=== PATIENT | male | born 1970 | race Caucasian/White ===

== ENCOUNTER → 2016-05-13 | Outpatient (CLI) | payer OTHER ==
--- NOTE | 2016-05-13 08:58 | KCIC ---
Surekha for foreign body Indication: Pre MRI screening. Time of exam 8:03 a.m. No radiopaque orbital foreign body is detected. Electronically signed by: Suhas Edmonds MD (May 13, 2016 08:56:05)
--- NOTE | 2016-05-13 09:48 | KCIC ---
PROCEDURE MR of the right knee HISTORY Right knee pain medially. Swelling for 1 week. COMPARISON None TECHNIQUE Standard noncontrast images are obtained. FINDINGS Signal identified within the medial meniscus with meniscal distortion, findings are compatible with a degenerative tear. No evidence of a lateral meniscal tear. The anterior and the posterior cruciate ligaments are intact. Mild scarring of the proximal medial collateral ligament without acute injury. Iliotibial band unremarkable. Fibular collateral ligament, biceps femoris tendon and popliteus tendon are intact. Note there is some signal and ill definition of the popliteus tendon at its attachment compatible with degeneration but no acute tear. Moderate joint effusion. No evidence of osteochondral loose body. Moderate chondromalacia of the medial patella. Vertical full-thickness cartilage fissure at the central femoral trochlear groove. Moderate to severe medial compartment chondromalacia. Subchondral cystic degeneration at the femoral trochlea. Bones otherwise intact. Soft tissue edema around the knee. IMPRESSION 1. Medial meniscal tear. 2. Primary osteoarthritis. Electronically signed by: Urbano Fowler MD (May 13, 2016 09:46:51)
== END | disposition home or self-care (01) ==
LOC: KCIC MRI 07:43
PROVIDERS: ATTEND Orthopaedic Surgery
DX: M25.561 Pain in right knee (principal)
CPT/HCPCS: 70030; 73721

== ENCOUNTER → 2018-12-13 | Day surgery (SDC) | payer OTHER ==
[~2018-12-13] MED LIST: ALBU2.5V8 IH; FLUT9.9S NS; IPRA3AMP29 NEB; IV RINGERS,LACTATED 1000ML 1,000 ML IV ONE; LIDOCAINE 2% PF 5 ML VIAL. ONE; LORA1TAB47 PO; OLOP5DRO EACHEYE; PRED-220 PO; PROPOFOL 40 ML IV ONE
--- NOTE | 2018-12-13 13:31 | PDOC4 ---
PROCEDURE Procedure Colonoscopy/biopsies Indication: CRC screening, no prior Meds: per anesthesia Findings: GAY: normal --'Scope advanced to cecum. Mucosa normal. No diverticulosis seen. --2, 3-4mm polyps in mid-ascending and mid-transverse, both biopsied off. Small internal hemorrhoids on retroflex. Ricki. well. IMP: Small polyps IH's REC: Await path. Resume home meds and diet. F/u in 2 weeks. Repeat exam pending path. SKY MINOR MD Dec 13, 2018 13:31
[2018-12-13 13:45] VITALS: BP 128/66
--- NOTE | 2018-12-15 15:07 | PATHOLOGY ---
[facility] Accession Number: [id number] . 01 Material submitted: . PART A: colon - BX ASCENDING COLON POLYP. Modifiers: ascending PART B: colon - BX TRANSVERSE COLON POLYP. Modifiers: transverse . 01 Clinical history: . Screening colonoscopy . 02 Diagnosis: A. Colon biopsy, ascending colon polyp: - Tubular adenoma. . B. Colon biopsy, transverse colon polyp: - Tubular adenoma. (JPM:kathy; 12/15/2018) QMS 12/15/2018 1153 Local . 02 Comment: There is no high-grade dysplasia or evidence of malignancy. . 02 Electronically signed: . Nilton Vargas MD, Pathologist NPI- [id number] . 01 Gross description: . A. Received in formalin labeled "Zach Arnold, RISHABH ascending colon polyp," is a single segment of oh soft tissue measuring 0.3 cm in maximum dimension. The specimen is entirely submitted in cassette A1. . B. Received in formalin labeled "Zach Arnold, BX transverse colon polyp," is a single segment of oh soft tissue measuring 0.4 cm in maximum dimension. The specimen is entirely submitted in cassette B1. (TSD; 12/14/2018) TOB/TOB 12/14/2018 1751 Local . 02 Pathologist provided ICD-10: D12.2, D12.3 . 02 CPT . 149573, 724325 Specimen Comment: A courtesy copy of this report has been sent to [phone] Specimen Comment: [id number] Specimen Comment: Report sent to / DR MCGHEE Performed at: [address], [place], [place] [id number] MD Francis Wilkerson MD Phone: [phone] Performed at: 02 [facility] [address] [place], [place] [id number] MD Nilton Vargas MD Phone: [phone]
== END ==
LOC: ENDOS 12:32
PROVIDERS: ATTEND Internal Medicine Gastroenterology
DX: Z12.11 Encounter for screening for malignant neoplasm of colon (principal); D12.2 Benign neoplasm of ascending colon; D12.3 Benign neoplasm of transverse colon; K64.0 First degree hemorrhoids; J45.909 Unspecified asthma, uncomplicated; E78.5 Hyperlipidemia, unspecified; E66.9 Obesity, unspecified; Z68.33 Body mass index [BMI] 33.0-33.9, adult; Z98.890 Other specified postprocedural states; Z72.89 Other problems related to lifestyle; Z87.39 Personal history of other diseases of the musculoskeletal system and connective tissue
CPT/HCPCS: 45380; 88305; J2001; J2704

== ENCOUNTER 2019-08-03 13:18 | Inpatient (IN) | payer OTHER ==
[~2019-08-03] VITALS: Ht 177.8 cm; Wt 104.0 kg
[~2019-08-03 13:18] MED LIST changes: -IV RINGERS,LACTATED 1000ML 1,000 ML IV ONE; -LIDOCAINE 2% PF 5 ML VIAL. ONE; -PROPOFOL 40 ML IV ONE
[2019-08-03 13:45] VITALS: BP 128/79
[2019-08-03] MEDS ORDERED: ACETAMINOPHEN 325 MG TABLET. PO PRN (14:00)
[2019-08-03] MEDS ORDERED: ALBUTEROL SULFATE 2.5 MG/3 ML NEBU. NEB PRN (14:15)
--- NOTE | 2019-08-03 14:20 | NUR ---
Patient was admitted from Dr. Zamudio's office around 1345. Patient being tested for COVID therefore needed to be transferred to COVID floor. Called report to BUCK Britton in ICU, patient transferred via wheelchair with all belongings, to room 114.
[2019-08-03 14:25] VITALS: BP 117/85
[2019-08-03] MEDS: ONDANSETRON PF 4 MG/2 ML VIAL. IVP PRN (14:58)
[2019-08-03] MEDS: MORPHINE SULFATE 2 MG/ML VIAL. IV PRN (14:59)
[2019-08-03 15:21] LABS: BASO % 0 % (0-3); EOS % 1 % (0-3); HEMATOCRIT 43.7 % (39.0-53.0); HEMOGLOBIN 15.6 g/dL (13.0-17.5); LYMPH # 0.5 x10^3/uL (1.0-4.8); LYMPH % 8 % (24-48); MEAN CORPUSCULAR HEMOGLOBIN 32 pg (25-35); MEAN CORPUSCULAR HGB CONC 36 g/dL (31-37); MEAN CORPUSCULAR VOLUME 89 fL (79-100); MONO # 0.8 x10^3/uL (0.0-1.1); MONO % 13 % (0-9); NEUT % 78 % (31-73); PLATELET COUNT 228 x10^3/uL (140-400); RED BLOOD COUNT 4.92 x10^6/uL (4.30-5.70); RED CELL DISTRIBUTION WIDTH 13.1 % (11.5-14.5); WHITE BLOOD COUNT 6.4 x10^3/uL (4.0-11.0)
--- NOTE | 2019-08-03 15:31 | PDOC2 ---
GI CONSULT Reason For Consult: vomiting, abd pain HPI: HPI: 49 y/o male directly admitted by Dr. Zamudio. Last week had some lower abdominal cramping prior to stooling - not unusual. Ate a sandwich from [employer] on Thursday. Had watery diarrhea beginning Thursday morning, felt weak and fatigued. This morning at 3:00 a.m. awoke w/ "heartburn" pain in epigastrium and vomited "solid" food. Antacid didn't help. Diarrhea ongoing, no recurrence of vomiting. Had temp checked three times today - not febrile until in ICU. 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 Doesn't have heartburn regularly. No dysphagia. No chronic n/v, abd pain, or diarrhea. No constipation. No hematemesis, hematochezia, or melena. No weight loss. No previous EGD. Colonoscopy in 2019 w/ Dr. Rogers w/ two adenomatous polyps and internal hemorrhoids. S/p open cholecystectomy for acute calculous cholecystitis. No liver, pancreas, or PUD history. No regular use of NSAIDs. PMH: PMH: HLD, allergic rhinitis, asthma, GERD, colon polyps cholecystectomy, LASIK FH: Family History: Cancer (breast, renal, lung) Social History: Smoke: No ALCOHOL: occassional Drugs: None ROS: GEN: fatigue, fever HEENT: Denies blurred vision, sore throat CV: Denies chest pain RESP: "always moreno short of breath because I have asthma" GI: Per HPI : Denies hematuria, dysuria ENDO: Denies weight changes NEURO: Denies confusion, dizziness MSK: weakness SKIN: Denies jaundice, pruritus Vitals: Vitals: Vital Signs Date Time Temp Pulse Resp B/P (MAP) Pulse Ox O2 Delivery O2 Flow Rate FiO2 08/03/19 14:59 20 96 Room Air 08/03/19 13:45 98.9 116 128/79 (95) 98.9 Allergies: Coded Allergies: No Known Drug Allergies (Unverified , 12/13/18) Medications: Current Medications Medications (Trade) Dose Ordered Sig/Dale Route PRN Reason Start Time Stop Time Status Last Admin Dose Admin Ondansetron HCl (Zofran) 4 mg PRN Q6HRS PRN IVP NAUSEA/VOMITING 08/03/19 14:00 08/03/19 14:58 Acetaminophen (Tylenol) 650 mg PRN Q6HRS PRN PO MILD PAIN / TEMP > 100.3'F 08/03/19 14:00 08/03/19 14:59 Morphine Sulfate (Morphine Sulfate) 1 mg PRN Q4HRS PRN IV PAIN 08/03/19 14:00 08/03/19 14:59 Imaging: Imaging: CXR pending PE: GEN: NAD HEENT: Atraumatic, PERRL LUNGS: CTAB HEART: RRR ABD: NABS, soft, round, epigastric to LUQ discomfort EXTREMITY: No edema SKIN: No rashes, no jaundice NEURO/PSYCH: A & O 3 A/P: A/P: Diarrhea, vomiting, epigastric pain, fever, fatigue CRC screen, h/o polyps - UTD R/o COVID-19 -- Await pending labs (including stool tests) and imaging as ordered by Dr. Zamudio. Was asked if CT should be done STAT considering unknown COVID status - would await labs. Pending lab and CT results (if done), could consider clears. 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 YADI MASTERS Aug 03, 2019 15:31
[2019-08-03 15:42] LABS: ALBUMIN 3.7 g/dL (3.4-5.0); CALCIUM 8.6 mg/dL (8.5-10.1); CREATININE 1.1 mg/dL (0.7-1.3); GFR 70.6; POTASSIUM 3.9 mmol/L (3.5-5.1); TOTAL BILIRUBIN 0.8 mg/dL (0.2-1.0); TOTAL PROTEIN 7.5 g/dL (6.4-8.2)
[2019-08-03] MEDS ORDERED: LORA-627 PO (15:42)
--- NOTE | 2019-08-03 16:12 | RAD ---
EXAM: CHEST AP ONLY INDICATION: Reason: fatigue, chills / Spl. Instructions: / History: . TECHNIQUE: Single view COMPARISON: None FINDINGS: The heart size is normal. The great vessels appear unremarkable. There is no hilar or mediastinal mass. The lungs are clear. There is no pleural effusion or pneumothorax. There are no significant osseous abnormalities. IMPRESSION: No active cardiopulmonary disease. Electronically signed by: Jose Martin Coon MD (08/03/2019 4:09 PM) [id number]
--- NOTE | 2019-08-03 16:14 | EKG ---
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
[2019-08-03] MEDS: POTASSIUM CL 20MEQ D5-0.45NACL 1,000 ML IV SCH (16:24)
[2019-08-03] MEDS: PANTOPRAZOLE IV PUSH 40 MG VIAL. IVP SCH ×2 (16:32→20:14)
[2019-08-03 19:00] VITALS: BP 115/76
[2019-08-03 23:00] VITALS: BP 118/69
[2019-08-04] VITALS (7 sets, daily range): BP systolic 105–131; BP diastolic 67–81
[2019-08-04] MEDS: POTASSIUM CL 20MEQ D5-0.45NACL 1,000 ML IV SCH ×4 (02:46→22:52)
--- NOTE | 2019-08-04 06:09 | NUR ---
FLUIDS NOT GIVEN AT 0600. PREVIOUS FLUIDS STILL INFUSING
[2019-08-04] MEDS: MORPHINE SULFATE 2 MG/ML VIAL. IV PRN ×3 (06:32→19:28)
--- NOTE | 2019-08-04 10:28 | PDOC ---
Subjective: Subjective: I called to check on him - says not feeling better. Drinking water. Hasn't vomited since Thursday. A little diarrhea at 8:00 a.m. 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 Objective: Vital Signs: Vital Signs Date Time Temp Pulse Resp B/P (MAP) Pulse Ox O2 Delivery O2 Flow Rate FiO2 08/04/19 07:05 97.3 81 16 131/72 (91) 97 Room Air 97.3 Labs: Laboratory Tests Test 08/03/19 14:45 White Blood Count 6.4 x10^3/uL Red Blood Count 4.92 x10^6/uL Hemoglobin 15.6 g/dL Hematocrit 43.7 % Mean Corpuscular Volume 89 fL Mean Corpuscular Hemoglobin 32 pg Mean Corpuscular Hemoglobin Concent 36 g/dL Red Cell Distribution Width 13.1 % Platelet Count 228 x10^3/uL Neutrophils (%) (Auto) 78 % Lymphocytes (%) (Auto) 8 % Monocytes (%) (Auto) 13 % Eosinophils (%) (Auto) 1 % Basophils (%) (Auto) 0 % Neutrophils # (Auto) 5.0 x10^3/uL Lymphocytes # (Auto) 0.5 x10^3/uL Monocytes # (Auto) 0.8 x10^3/uL Eosinophils # (Auto) 0.0 x10^3/uL Basophils # (Auto) 0.0 x10^3/uL Sodium Level 139 mmol/L Potassium Level 3.9 mmol/L Chloride Level 101 mmol/L Carbon Dioxide Level 27 mmol/L Anion Gap 11 Blood Urea Nitrogen 24 mg/dL Creatinine 1.1 mg/dL Estimated GFR (Cockcroft-Gault) 70.6 BUN/Creatinine Ratio 22 Glucose Level 109 mg/dL Calcium Level 8.6 mg/dL Magnesium Level 1.6 mg/dL Total Bilirubin 0.8 mg/dL Aspartate Amino Transf (AST/SGOT) 29 U/L Alanine Aminotransferase (ALT/SGPT) 45 U/L Alkaline Phosphatase 86 U/L Total Protein 7.5 g/dL Albumin 3.7 g/dL Albumin/Globulin Ratio 1.0 Amylase Level 70 U/L Lipase 139 U/L PE: in COVID-isolation room w/ pending testing A/P: Epigastric pain Diarrhea, vomiting - better, enteric bacterial panel uncollected R/o COVID-19 Hypomagnesemia -- Nurse asks for diet clarification - nothing ordered but drinking water - I said okay for clears while we await COVID testing. Hopefully CT soon. Continue PPI. Could try GI cocktail. Also d/w nurse re: his questions about his senior technical support analyst. Justicifation of Admission Dx: Justifications for Admission: Justification of Admission Dx: Yes YADI MASTERS Aug 04, 2019 10:28
[2019-08-04 11:54] LABS: BILIRUBIN,URINE NEGATIVE (NEG); CLARITY,URINE CLEAR; COLOR,URINE YELLOW; NITRITE,URINE NEGATIVE (NEG); PROTEIN,URINE NEGATIVE (NEG-TRACE)
[2019-08-04] MEDS ORDERED: MAGNESIUM SULFATE 2GM 50 ML IV ONE (12:00)
[2019-08-04 12:14] LABS: BACTERIA,URINE FEW /HPF (0-FEW); RBC,URINE 0 /HPF (0-2); SQUAMOUS EPITHELIAL CELL,UR MOD /LPF; WBC,URINE RARE /HPF (0-4)
--- NOTE | 2019-08-04 12:33 | NUR ---
SS following for discharge planning. SS reviewed pt chart and discussed with pt RN. Pt is from home and is currently on room air. Pt COVID19 test pending. SS will continue to follow for discharge planning.
--- NOTE | 2019-08-04 12:50 | HP ---
ADMIT DATE: 08/03/2019 LOCATION: He is in room 674. HISTORY OF PRESENT ILLNESS: The patient is a 49-year-old white male with history of asthma and allergic rhinitis, who was [facility] from my office on 08/03/2019 with vomiting and diarrhea and epigastric and lower abdominal pain. He denied any fever, any chills. He said he had a sandwich from [facility] earlier in the week and he had 10 loose stools on the day of admission and had some vomiting on Thursday. The symptoms began on Thursday, which would have been on 08/01. He was able to drink some fluids, but he had some epigastric pain, which was severe and lower abdominal pain, which also caused a lot of discomfort. Denies any recent travel, has not been on any antibiotics in the last month, not exposed to anybody with similar symptoms that he is aware of. He does have a previous history of a cholecystectomy and his last colonoscopy was in 2018, at which time he had two adenomatous polyps, internal hemorrhoids noted. No previous EGD was done in the past. He is therefore admitted for further evaluation and treatment of the vomiting and diarrhea and abdominal pain. ALLERGIES AND INTOLERANCES: None. MEDICATIONS: Prior to admission include DuoNeb nebulizer treatments q.i.d. p.r.n., ProAir inhaler 1-2 puffs every 4 hours p.r.n., Flonase 2 sprays each nostril everyday p.r.n. PAST MEDICAL HISTORY: Significant for allergic rhinitis and asthma. He had a cholecystectomy, bilateral arthroscopic knee surgery, and hiatal hernia repair in the past. SOCIAL HISTORY: He does not drink alcohol or smoke cigarettes. FAMILY HISTORY: Father had a myocardial infarction. Mother had diabetes mellitus and hypertension. REVIEW OF SYSTEMS: GENERAL: No fever, chills or sweats in the last 3 days. CARDIOVASCULAR: No chest pain. PULMONARY: No cough or shortness of breath. GASTROINTESTINAL: Had epigastric and lower abdominal pain, vomiting and diarrhea. ENDOCRINE: No diabetes mellitus. SKIN: No rashes. Rest of the systems reviewed are negative except as stated in history of present illness. PHYSICAL EXAMINATION: VITAL SIGNS: Temperature is 97.3 degrees, pulse 81, respiratory rate 16, blood pressure 131/72, oxygen saturation 97% on room air. HEENT: Eyes: Gaze is conjugate. Mouth: Tongue is midline. NECK: Shows no cervical lymphadenopathy or thyroid enlargement. HEART: Reveals an S1, S2. There is no S3 or murmur. LUNGS: Clear. ABDOMEN: Soft, bowel sounds positive, it is not distended. He has epigastric tenderness and some diffuse lower abdominal pain without any guarding. Bowel sounds are heard. LABORATORY DATA: Review of his labs, white count 6.4, hemoglobin 15.6, platelet count 228,000, 70 polys and 8 lymphocytes. Sodium 139, potassium 3.9, chloride 101, total CO2 of 27, BUN 24, creatinine 1.1, blood sugar 109, magnesium was low at 1.6. Liver function tests normal. Albumin was 3.7. He had a COVID-19 test, which is pending. Chest x-ray showed no acute abnormality. CAT scan of the abdomen and pelvis has been ordered, but has not been done yet because we are waiting for the COVID-19 results. He had an electrocardiogram done. EKG showed normal sinus rhythm and no acute abnormality. ASSESSMENT: 1. Vomiting and diarrhea, possibly from acute gastroenteritis. 2. Epigastric and lower abdominal pain. 3. Hypomagnesemia. 4. Asthma. 5. History of a cholecystectomy. PLAN: At this time, we have already consulted the GI doctor, who has seen the patient, Dr. Rogers. We will await for the CAT scan of the abdomen and pelvis, which will be done once the COVID-19 results are back and if it is negative. We will get a KUB. Continue IV fluids. He is n.p.o. Continue IV Zofran p.r.n., IV Protonix. We gave him 2 g of magnesium sulfate IV today and repeat the labs tomorrow, including a CBC, CMP and magnesium. IV morphine sulfate has been ordered, 1 mg IV every 4 hours p.r.n. and we will make him actually a full admit. Continue albuterol nebulizer treatments p.r.n. SKY MCGHEE MD DR: JATINDER/osbaldo JOB#: [id number] / [id number]
[2019-08-04] MEDS: LIDO:MAALOX 1:1 20 ML SINGLE DOSE. PO PRN ×2 (14:43→19:28)
--- NOTE | 2019-08-04 15:24 | RAD ---
KUB History: Reason: epigastric abdominal pain / Spl. Instructions: / History: Technique: Supine view the abdomen. Comparison: None. Findings: Mildly dilated loops of small bowel within the upper abdomen. Air and stool scattered throughout the imaged colon. Surgical clips right upper quadrant. Impression: 1. Mildly dilated air-filled loops of small bowel within the upper abdomen, may represent ileus or enteritis. Recommend follow-up to exclude developing obstruction. Electronically signed by: Jose C Alvarado DO (08/04/2019 3:21 PM) REMBERTO
--- NOTE | 2019-08-04 17:29 | RAD ---
CT scan of the abdomen and pelvis without contrast 08/04/2019 CLINICAL HISTORY: Abdominal pain. TECHNIQUE: Unenhanced, contiguous, 5 mm axial sections were obtained through the abdomen and pelvis. One or more of the following individualized dose reduction techniques were utilized for this study: 1. Automated exposure control. 2. Adjustment of the mA and/or kV according to patient size. 3. Use of iterative reconstruction technique. FINDINGS: Images through the lung bases demonstrate minimal dependent subsegmental atelectasis bilaterally. The liver, spleen, pancreas, adrenal glands and kidneys are within normal limits. The abdominal aorta tapers normally. Atherosclerotic calcification of the abdominal aorta is seen. The abdominal aorta tapers normally. Surgical clips are seen within the gallbladder fossa consistent with a cholecystectomy. Dilated air and fluid-filled small bowel loops are seen throughout the abdomen. A transition point in the caliber of the bowel is seen in the mid/distal ileum within the right lower quadrant of the abdomen. These findings are consistent with a small bowel obstruction. Colon is normal in caliber. Images through the pelvis demonstrate the urinary bladder to be contracted. Calcifications are seen within the pelvis consistent with phleboliths. A small amount of free fluid is seen. Minimal S-shaped curvature of the thoracolumbar spine is noted. There is a small fat-containing left inguinal hernia. Degenerative changes are seen involving the thoracic and throughout the lumbar spine along with both hips. IMPRESSION: Findings are seen consistent with a small bowel obstruction. Electronically signed by: Dion Núñez MD (08/04/2019 5:26 PM) [id number]
--- NOTE | 2019-08-04 18:49 | RAD ---
VENOUS LOWER EXTREMITY RIGHT History: Reason: RT leg swelling; r/o DVT;/fever / Spl. Instructions: / History: Comparison: None. Discussion: Multiple longitudinal and transverse high resolution real-time images of the venous system of right lower extremity were obtained with color and Doppler sampling. The common femoral, superficial femoral, popliteal and proximal calf veins are all patent and demonstrate normal flow and compressibility. Normal respiratory phasicity and augmentation is present. Impression: 1. No evidence of deep vein thrombosis. Electronically signed by: Jose C Alvarado DO (08/04/2019 6:46 PM) [facility]
[2019-08-05 03:00] VITALS: BP 107/70
[2019-08-05 04:33] LABS: BASO % 0 % (0-3); EOS # 0.1 x10^3/uL (0.0-0.7); EOS % 2 % (0-3); HEMATOCRIT 43.1 % (39.0-53.0); HEMOGLOBIN 15.1 g/dL (13.0-17.5); LYMPH # 1.5 x10^3/uL (1.0-4.8); LYMPH % 24 % (24-48); MEAN CORPUSCULAR HEMOGLOBIN 31 pg (25-35); MEAN CORPUSCULAR HGB CONC 35 g/dL (31-37); MEAN CORPUSCULAR VOLUME 89 fL (79-100); MONO # 0.8 x10^3/uL (0.0-1.1); MONO % 13 % (0-9); NEUT # 3.7 x10^3/uL (1.8-7.7); NEUT % 60 % (31-73); PLATELET COUNT 231 x10^3/uL (140-400); RED BLOOD COUNT 4.83 x10^6/uL (4.30-5.70); RED CELL DISTRIBUTION WIDTH 13.3 % (11.5-14.5); WHITE BLOOD COUNT 6.1 x10^3/uL (4.0-11.0)
[2019-08-05 05:01] LABS: ALBUMIN 3.1 g/dL (3.4-5.0); ALBUMIN/GLOBULIN RATIO 0.8 (1.0-1.7); CALCIUM 8.2 mg/dL (8.5-10.1); CREATININE 1.1 mg/dL (0.7-1.3); GFR 70.6; POTASSIUM 4.2 mmol/L (3.5-5.1); TOTAL BILIRUBIN 0.5 mg/dL (0.2-1.0); TOTAL PROTEIN 7.1 g/dL (6.4-8.2)
[2019-08-05 07:00] VITALS: BP 104/67
[2019-08-05] MEDS: POTASSIUM CL 20MEQ D5-0.45NACL 1,000 ML IV SCH ×3 (07:14→21:07)
[2019-08-05] MEDS: ONDANSETRON PF 4 MG/2 ML VIAL. IVP PRN (07:14)
[2019-08-05] MEDS: PANTOPRAZOLE IV PUSH 40 MG VIAL. IVP SCH (08:32)
--- NOTE | 2019-08-05 09:06 | NUR ---
SW following. Discussed with RN. Pt from home, room air, clear liquid diet, still having diarrhea and pain. COVID-19 negative. RN advised no SW needs at this time. SW will continue to follow.
--- NOTE | 2019-08-05 10:53 | PDOC ---
PROGRESS NOTES Subjective Subjective ct scan of abdomen and pelvis shows a small bowel obstruction with transition point mid/distal ileum in RLQ. had loose stool. has diffuse abdominal pain. venous doppler RLQ neg for dvt. lab reviewed. no vomiting. Objective Objective Vital Signs Date Time Temp Pulse Resp B/P (MAP) Pulse Ox O2 Delivery O2 Flow Rate FiO2 08/05/19 08:00 Room Air 08/05/19 07:00 98.1 65 18 104/67 (79) 96 98.1 Intake and Output 08/05/19 07:00 # Voids 2 Physical Exam Abdomen: Soft, Other (tender throughout. no guarding. bowel sounds noted. abdomen obese and distended) Heart: Regular rate, Normal S1, Normal S2 Extremities: No edema General: Alert HEENT: Atraumatic Lungs: Clear to auscultation Neuro: Normal speech Psych/Mental Status: Mental status NL Skin: No rashes Assessment Assessment 1. small bowel obstruction . Hypomagnesemia. treated Asthma. History of a cholecystectomy. Plan Plan of Care npo place ng to suction iv fluids consult surgeon discussed with [employer] surgeon acute abdominal series tomorrow Comment Review of Relevant I have reviewed the following items dimitri (where applicable) has been applied. Labs Laboratory Tests Test 08/03/19 14:45 08/03/19 15:08 08/04/19 10:50 08/05/19 04:15 White Blood Count 6.4 x10^3/uL (4.0-11.0) 6.1 x10^3/uL (4.0-11.0) Red Blood Count 4.92 x10^6/uL (4.30-5.70) 4.83 x10^6/uL (4.30-5.70) Hemoglobin 15.6 g/dL (13.0-17.5) 15.1 g/dL (13.0-17.5) Hematocrit 43.7 % (39.0-53.0) 43.1 % (39.0-53.0) Mean Corpuscular Volume 89 fL (79-100) 89 fL (79-100) Mean Corpuscular Hemoglobin 32 pg (25-35) 31 pg (25-35) Mean Corpuscular Hemoglobin Concent 36 g/dL (31-37) 35 g/dL (31-37) Red Cell Distribution Width 13.1 % (11.5-14.5) 13.3 % (11.5-14.5) Platelet Count 228 x10^3/uL (140-400) 231 x10^3/uL (140-400) Neutrophils (%) (Auto) 78 % (31-73) 60 % (31-73) Lymphocytes (%) (Auto) 8 % (24-48) 24 % (24-48) Monocytes (%) (Auto) 13 % (0-9) 13 % (0-9) Eosinophils (%) (Auto) 1 % (0-3) 2 % (0-3) Basophils (%) (Auto) 0 % (0-3) 0 % (0-3) Neutrophils # (Auto) 5.0 x10^3/uL (1.8-7.7) 3.7 x10^3/uL (1.8-7.7) Lymphocytes # (Auto) 0.5 x10^3/uL (1.0-4.8) 1.5 x10^3/uL (1.0-4.8) Monocytes # (Auto) 0.8 x10^3/uL (0.0-1.1) 0.8 x10^3/uL (0.0-1.1) Eosinophils # (Auto) 0.0 x10^3/uL (0.0-0.7) 0.1 x10^3/uL (0.0-0.7) Basophils # (Auto) 0.0 x10^3/uL (0.0-0.2) 0.0 x10^3/uL (0.0-0.2) Sodium Level 139 mmol/L (136-145) 137 mmol/L (136-145) Potassium Level 3.9 mmol/L (3.5-5.1) 4.2 mmol/L (3.5-5.1) Chloride Level 101 mmol/L (98-107) 102 mmol/L (98-107) Carbon Dioxide Level 27 mmol/L (21-32) 27 mmol/L (21-32) Anion Gap 11 (6-14) 8 (6-14) Blood Urea Nitrogen 24 mg/dL (8-26) 12 mg/dL (8-26) Creatinine 1.1 mg/dL (0.7-1.3) 1.1 mg/dL (0.7-1.3) Estimated GFR (Cockcroft-Gault) 70.6 70.6 BUN/Creatinine Ratio 22 (6-20) 11 (6-20) Glucose Level 109 mg/dL (70-99) 110 mg/dL (70-99) Calcium Level 8.6 mg/dL (8.5-10.1) 8.2 mg/dL (8.5-10.1) Magnesium Level 1.6 mg/dL (1.8-2.4) 2.1 mg/dL (1.8-2.4) Total Bilirubin 0.8 mg/dL (0.2-1.0) 0.5 mg/dL (0.2-1.0) Aspartate Amino Transf (AST/SGOT) 29 U/L (15-37) 37 U/L (15-37) Alanine Aminotransferase (ALT/SGPT) 45 U/L (16-63) 62 U/L (16-63) Alkaline Phosphatase 86 U/L (46-116) 90 U/L (46-116) Total Protein 7.5 g/dL (6.4-8.2) 7.1 g/dL (6.4-8.2) Albumin 3.7 g/dL (3.4-5.0) 3.1 g/dL (3.4-5.0) Albumin/Globulin Ratio 1.0 (1.0-1.7) 0.8 (1.0-1.7) Amylase Level 70 U/L (25-115) Lipase 139 U/L (73-393) Coronavirus (COVID-19)(PCR) Not detected (NOT DETECT.) Urine Collection Type Unknown Urine Color Yellow Urine Clarity Clear Urine pH 6.0 (<5.0-8.0) Urine Specific [place] 1.025 (1.000-1.030) Urine Protein Negative mg/dL (NEG-TRACE) Urine Glucose (UA) Negative mg/dL (NEG) Urine Ketones (Stick) Negative mg/dL (NEG) Urine Blood Negative (NEG) Urine Nitrite Negative (NEG) Urine Bilirubin Negative (NEG) Urine Urobilinogen Dipstick 1.0 mg/dL (0.2 mg/dL) Urine Leukocyte Esterase Negative (NEG) Urine RBC 0 /HPF (0-2) Urine WBC Rare /HPF (0-4) Urine Squamous Epithelial Cells Mod /LPF Urine Bacteria Few /HPF (0-FEW) Urine Mucus Mod /LPF Laboratory Tests Test 08/05/19 04:15 White Blood Count 6.1 x10^3/uL (4.0-11.0) Red Blood Count 4.83 x10^6/uL (4.30-5.70) Hemoglobin 15.1 g/dL (13.0-17.5) Hematocrit 43.1 % (39.0-53.0) Mean Corpuscular Volume 89 fL (79-100) Mean Corpuscular Hemoglobin 31 pg (25-35) Mean Corpuscular Hemoglobin Concent 35 g/dL (31-37) Red Cell Distribution Width 13.3 % (11.5-14.5) Platelet Count 231 x10^3/uL (140-400) Neutrophils (%) (Auto) 60 % (31-73) Lymphocytes (%) (Auto) 24 % (24-48) Monocytes (%) (Auto) 13 % (0-9) Eosinophils (%) (Auto) 2 % (0-3) Basophils (%) (Auto) 0 % (0-3) Neutrophils # (Auto) 3.7 x10^3/uL (1.8-7.7) Lymphocytes # (Auto) 1.5 x10^3/uL (1.0-4.8) Monocytes # (Auto) 0.8 x10^3/uL (0.0-1.1) Eosinophils # (Auto) 0.1 x10^3/uL (0.0-0.7) Basophils # (Auto) 0.0 x10^3/uL (0.0-0.2) Sodium Level 137 mmol/L (136-145) Potassium Level 4.2 mmol/L (3.5-5.1) Chloride Level 102 mmol/L (98-107) Carbon Dioxide Level 27 mmol/L (21-32) Anion Gap 8 (6-14) Blood Urea Nitrogen 12 mg/dL (8-26) Creatinine 1.1 mg/dL (0.7-1.3) Estimated GFR (Cockcroft-Gault) 70.6 BUN/Creatinine Ratio 11 (6-20) Glucose Level 110 mg/dL (70-99) Calcium Level 8.2 mg/dL (8.5-10.1) Magnesium Level 2.1 mg/dL (1.8-2.4) Total Bilirubin 0.5 mg/dL (0.2-1.0) Aspartate Amino Transf (AST/SGOT) 37 U/L (15-37) Alanine Aminotransferase (ALT/SGPT) 62 U/L (16-63) Alkaline Phosphatase 90 U/L (46-116) Total Protein 7.1 g/dL (6.4-8.2) Albumin 3.1 g/dL (3.4-5.0) Albumin/Globulin Ratio 0.8 (1.0-1.7) Medications Current Medications Potassium Chloride/Dextrose/ Sod Cl 1,000 ml @ 125 mls/hr Q8H IV Last admini stered on 08/05/19 07:14; Start 08/03/19 at 14:00 Ondansetron HCl (Zofran) 4 mg PRN Q6HRS PRN IVP NAUSEA/VOMITING Last adminis tered on 08/05/19at 07:14; Start 08/03/19 at 14:00 Acetaminophen (Tylenol) 650 mg PRN Q6HRS PRN PO MILD PAIN / TEMP > 100.3'F Last administered on 08/03/19 14:59; Start 08/03/19 at 14:00 Morphine Sulfate (Morphine Sulfate) 1 mg PRN Q4HRS PRN IV PAIN Last administered on 08/04/19 19:28; Start 08/03/19 at 14:00 Albuterol Sulfate (Ventolin Neb Soln) 2.5 mg PRN Q4HRS PRN NEB SHORTNESS OF BREATH; Start 08/03/19 at 14:15 Pantoprazole Sodium (PROTONIX VIAL for IV PUSH) 40 mg DAILYAC IVP Last administered on 08/05/19 08:32; Start 08/03/19 at 16:30 Multi-Ingredient Mouthwash/Gargle (Gi Cocktail) 20 ml PRN QID PRN PO epigastric pain Last administered on 08/04/19 19:28; Start 08/04/19 at 10:30 Magnesium Sulfate 50 ml @ 25 mls/hr 1X ONCE IV Last administered on 08/04/19at 14:44; Start 08/04/19 at 12:00; Stop 08/04/19 at 13:59; Status DC Active Scripts Active Reported Claritin-D 24 Hour Tablet (Loratadine/Pseudoephedrine) 1 Each Tab.er.24h 1 Tab PO PRN DAILY PRN 10 Days Proair Hfa (Albuterol Sulfate) 8.5 Gm Hfa.aer.ad 2 Puff IH PRN Q4-6HRS PRN 21 Days Vitals/I & O Vital Sign - Last 24 Hours 08/04/19 08/04/19 08/04/19 08/04/19 11:04 11:10 11:34 15:10 Temp 97.9 97.6 97.9 97.6 Pulse 92 74 Resp 16 16 16 16 B/P (MAP) 126/77 (93) 119/81 (94) Pulse Ox 97 97 O2 Delivery Room Air Room Air Room Air Room Air 08/04/19 08/04/19 08/04/19 08/04/19 16:40 19:00 19:28 19:58 Temp 98.0 97.6 98.0 97.6 Pulse 76 67 Resp 18 20 20 B/P (MAP) 123/80 (94) 122/75 (91) Pulse Ox 96 96 96 96 O2 Delivery Room Air Room Air Room Air Room Air 08/04/19 08/04/19 08/05/19 08/05/19 20:00 23:00 03:00 07:00 Temp 97.7 98.0 98.1 97.7 98.0 98.1 Pulse 74 71 65 Resp 18 B/P (MAP) 105/69 (81) 107/70 (82) 104/67 (79) Pulse Ox 95 95 96 O2 Delivery Room Air Room Air 08/05/19 08:00 O2 Delivery Room Air SKY MCGHEE MD Aug 05, 2019 10:53
[2019-08-05 11:00] VITALS: BP 127/79
--- NOTE | 2019-08-05 11:28 | PDOC ---
Subjective: Subjective: No n/v. +flatus Two stools - both watery, first fairly large amount, second not much. Pain worse w/ movement today - now more in LUQ. Objective: Vital Signs: Vital Signs Date Time Temp Pulse Resp B/P (MAP) Pulse Ox O2 Delivery O2 Flow Rate FiO2 08/05/19 08:00 Room Air 08/05/19 07:00 98.1 65 18 104/67 (79) 96 98.1 Labs: Laboratory Tests Test 08/05/19 04:15 White Blood Count 6.1 x10^3/uL Red Blood Count 4.83 x10^6/uL Hemoglobin 15.1 g/dL Hematocrit 43.1 % Mean Corpuscular Volume 89 fL Mean Corpuscular Hemoglobin 31 pg Mean Corpuscular Hemoglobin Concent 35 g/dL Red Cell Distribution Width 13.3 % Platelet Count 231 x10^3/uL Neutrophils (%) (Auto) 60 % Lymphocytes (%) (Auto) 24 % Monocytes (%) (Auto) 13 % Eosinophils (%) (Auto) 2 % Basophils (%) (Auto) 0 % Neutrophils # (Auto) 3.7 x10^3/uL Lymphocytes # (Auto) 1.5 x10^3/uL Monocytes # (Auto) 0.8 x10^3/uL Eosinophils # (Auto) 0.1 x10^3/uL Basophils # (Auto) 0.0 x10^3/uL Sodium Level 137 mmol/L Potassium Level 4.2 mmol/L Chloride Level 102 mmol/L Carbon Dioxide Level 27 mmol/L Anion Gap 8 Blood Urea Nitrogen 12 mg/dL Creatinine 1.1 mg/dL Estimated GFR (Cockcroft-Gault) 70.6 BUN/Creatinine Ratio 11 Glucose Level 110 mg/dL Calcium Level 8.2 mg/dL Magnesium Level 2.1 mg/dL Total Bilirubin 0.5 mg/dL Aspartate Amino Transf (AST/SGOT) 37 U/L Alanine Aminotransferase (ALT/SGPT) 62 U/L Alkaline Phosphatase 90 U/L Total Protein 7.1 g/dL Albumin 3.1 g/dL Albumin/Globulin Ratio 0.8 Imaging: [facility] 08/03 Impression: 1. Mildly dilated air-filled loops of small bowel within the upper abdomen, may represent ileus or enteritis. Recommend follow-up to exclude developing obstruction. CT A/P IMPRESSION: Findings are seen consistent with a small bowel obstruction. PE: GEN: NAD LUNGS: CTAB HEART: RRR ABD: round - stable in appearance, tender from epigastric to LUQ, also some in right mid abdomen, few if any BS NEURO/PSYCH: A & O 3 A/P: Abd pain, diarrhea - CT as above w/ SBO COVID-19 negative -- Note plans for NGT and surgery eval. No recurrent vomiting, has stooled. Justicifation of Admission Dx: Justifications for Admission: Justification of Admission Dx: Yes YADI MASTERS Aug 05, 2019 11:28
--- NOTE | 2019-08-05 11:39 | PDOC2 ---
JERARDO ROSEN CAFETERIA AIDE 08/05/19 1139: CONSULT Date of Consult Date of Consult DATE: 08/05/19 TIME: 11:23 Referring Physician Referring Physician: Dr Zamudio Identification/Chief Complaint Chief Complaint abdominal pain Source Source: Chart review, Patient History of Present Illness Reason for Visit: Thursday abdominal pain, nausea, diarrhea. This was progressively worse Thursday. Minimal stool yesterday, however today has had 4 diarrheal stools. No blood. No hx IBD, colonoscopy last year. Some flatus, feels distended. He does report bloating intermittently for last few months. Past Medical History Cardiovascular: Hyperlipidemia Pulmonary: Asthma Past Surgical History Past Surgical History: Cholecystectomy, Hernia Repair Family History Family History: Cancer (breast, renal , lung), Other Social History No ALCOHOL: occassional Drugs: None Current Medications Current Medications Current Medications Potassium Chloride/Dextrose/ Sod Cl 1,000 ml @ 125 mls/hr Q8H IV Last administered on 08/05/19at 07:14; Start 08/03/19 at 14:00 Ondansetron HCl (Zofran) 4 mg PRN Q6HRS PRN IVP NAUSEA/VOMITING Last administered on 08/05/19at 07:14; Start 08/03/19 at 14:00 Acetaminophen (Tylenol) 650 mg PRN Q6HRS PRN PO MILD PAIN / TEMP > 100.3'F Last administered on 08/03/19at 14:59; Start 08/03/19 at 14:00 Morphine Sulfate (Morphine Sulfate) 1 mg PRN Q4HRS PRN IV PAIN Last administered on 08/04/19at 19:28; Start 08/03/19 at 14:00 Albuterol Sulfate (Ventolin Neb Soln) 2.5 mg PRN Q4HRS PRN NEB SHORTNESS OF BREATH; Start 08/03/19 at 14:15 Pantoprazole Sodium (PROTONIX VIAL for IV PUSH) 40 mg DAILYAC IVP Last administered on 08/05/19at 08:32; Start 08/03/19 at 16:30 Multi-Ingredient Mouthwash/Gargle (Gi Cocktail) 20 ml PRN QID PRN PO epigastric pain Last administered on 08/04/19at 19:28; Start 08/04/19 at 10:30 Magnesium Sulfate 50 ml @ 25 mls/hr 1X ONCE IV Last administered on 08/04/19at 14:44; Start 08/04/19 at 12:00; Stop 08/04/19 at 13:59; Status DC Active Scripts Active Reported Claritin-D 24 Hour Tablet (Loratadine/Pseudoephedrine) 1 Each Tab.er.24h 1 Tab PO PRN DAILY PRN 10 Days Proair Hfa (Albuterol Sulfate) 8.5 Gm Hfa.aer.ad 2 Puff IH PRN Q4-6HRS PRN 21 Days Allergies Allergies: Coded Allergies: No Known Drug Allergies (Unverified , 12/13/18) ROS General: YES: Chills, Appetite (loss) PSYCHOLOGICAL ROS: No: Anxiety, Depression Eyes: No Blurry vision, No Double vision HEENT: No: Heacaches, Sore Throat Hematological and Lymphatic: No: Bleeding Problems, Blood Clots Respiratory: No: Cough, Shortness of breath Cardiovascular: No Chest Pain, No Palpitations Gastrointestinal: Yes Other (see hpi) Genitourinary: No Dysuria, No Hematuria Musculoskeletal: No Joint Pain, No Muscle Pain Neurological: No Impaired Coord/balance, No Numbness/Tingling Skin: No Pruritus, No Rash Physical Exam General: Alert, Oriented X3, Cooperative HEENT: Atraumatic, PERRLA Lungs: Clear to auscultation, Normal air movement Heart: Regular rate, Normal S1, Normal S2 Abdomen: Soft, Other (mildly distended, nontender) Extremities: No clubbing, No cyanosis Skin: No rashes, No breakdown Neuro: Normal speech, Sensation intact Psych/Mental Status: Mental status NL, Mood NL MUSCULOSKELETAL: No deformity, No swelling Vitals VITALS Vital Signs Date Time Temp Pulse Resp B/P (MAP) Pulse Ox O2 Delivery O2 Flow Rate FiO2 08/05/19 08:00 Room Air 08/05/19 07:00 98.1 65 18 104/67 (79) 96 98.1 Labs Labs Laboratory Tests Test 08/03/19 14:45 08/03/19 15:08 08/04/19 10:50 08/05/19 04:15 White Blood Count 6.4 x10^3/uL (4.0-11.0) 6.1 x10^3/uL (4.0-11.0) Red Blood Count 4.92 x10^6/uL (4.30-5.70) 4.83 x10^6/uL (4.30-5.70) Hemoglobin 15.6 g/dL (13.0-17.5) 15.1 g/dL (13.0-17.5) Hematocrit 43.7 % (39.0-53.0) 43.1 % (39.0-53.0) Mean Corpuscular Volume 89 fL (79-100) 89 fL (79-100) Mean Corpuscular Hemoglobin 32 pg (25-35) 31 pg (25-35) Mean Corpuscular Hemoglobin Concent 36 g/dL (31-37) 35 g/dL (31-37) Red Cell Distribution Width 13.1 % (11.5-14.5) 13.3 % (11.5-14.5) Platelet Count 228 x10^3/uL (140-400) 231 x10^3/uL (140-400) Neutrophils (%) (Auto) 78 % (31-73) 60 % (31-73) Lymphocytes (%) (Auto) 8 % (24-48) 24 % (24-48) Monocytes (%) (Auto) 13 % (0-9) 13 % (0-9) Eosinophils (%) (Auto) 1 % (0-3) 2 % (0-3) Basophils (%) (Auto) 0 % (0-3) 0 % (0-3) Neutrophils # (Auto) 5.0 x10^3/uL (1.8-7.7) 3.7 x10^3/uL (1.8-7.7) Lymphocytes # (Auto) 0.5 x10^3/uL (1.0-4.8) 1.5 x10^3/uL (1.0-4.8) Monocytes # (Auto) 0.8 x10^3/uL (0.0-1.1) 0.8 x10^3/uL (0.0-1.1) Eosinophils # (Auto) 0.0 x10^3/uL (0.0-0.7) 0.1 x10^3/uL (0.0-0.7) Basophils # (Auto) 0.0 x10^3/uL (0.0-0.2) 0.0 x10^3/uL (0.0-0.2) Sodium Level 139 mmol/L (136-145) 137 mmol/L (136-145) Potassium Level 3.9 mmol/L (3.5-5.1) 4.2 mmol/L (3.5-5.1) Chloride Level 101 mmol/L (98-107) 102 mmol/L (98-107) Carbon Dioxide Level 27 mmol/L (21-32) 27 mmol/L (21-32) Anion Gap 11 (6-14) 8 (6-14) Blood Urea Nitrogen 24 mg/dL (8-26) 12 mg/dL (8-26) Creatinine 1.1 mg/dL (0.7-1.3) 1.1 mg/dL (0.7-1.3) Estimated GFR (Cockcroft-Gault) 70.6 70.6 BUN/Creatinine Ratio 22 (6-20) 11 (6-20) Glucose Level 109 mg/dL (70-99) 110 mg/dL (70-99) Calcium Level 8.6 mg/dL (8.5-10.1) 8.2 mg/dL (8.5-10.1) Magnesium Level 1.6 mg/dL (1.8-2.4) 2.1 mg/dL (1.8-2.4) Total Bilirubin 0.8 mg/dL (0.2-1.0) 0.5 mg/dL (0.2-1.0) Aspartate Amino Transf (AST/SGOT) 29 U/L (15-37) 37 U/L (15-37) Alanine Aminotransferase (ALT/SGPT) 45 U/L (16-63) 62 U/L (16-63) Alkaline Phosphatase 86 U/L (46-116) 90 U/L (46-116) Total Protein 7.5 g/dL (6.4-8.2) 7.1 g/dL (6.4-8.2) Albumin 3.7 g/dL (3.4-5.0) 3.1 g/dL (3.4-5.0) Albumin/Globulin Ratio 1.0 (1.0-1.7) 0.8 (1.0-1.7) Amylase Level 70 U/L (25-115) Lipase 139 U/L (73-393) Coronavirus (COVID-19)(PCR) Not detected (NOT DETECT.) Urine Collection Type Unknown Urine Color Yellow Urine Clarity Clear Urine pH 6.0 (<5.0-8.0) Urine Specific [place] 1.025 (1.000-1.030) Urine Protein Negative mg/dL (NEG-TRACE) Urine Glucose (UA) Negative mg/dL (NEG) Urine Ketones (Stick) Negative mg/dL (NEG) Urine Blood Negative (NEG) Urine Nitrite Negative (NEG) Urine Bilirubin Negative (NEG) Urine Urobilinogen Dipstick 1.0 mg/dL (0.2 mg/dL) Urine Leukocyte Esterase Negative (NEG) Urine RBC 0 /HPF (0-2) Urine WBC Rare /HPF (0-4) Urine Squamous Epithelial Cells Mod /LPF Urine Bacteria Few /HPF (0-FEW) Urine Mucus Mod /LPF Laboratory Tests Test 08/05/19 04:15 White Blood Count 6.1 x10^3/uL (4.0-11.0) Red Blood Count 4.83 x10^6/uL (4.30-5.70) Hemoglobin 15.1 g/dL (13.0-17.5) Hematocrit 43.1 % (39.0-53.0) Mean Corpuscular Volume 89 fL (79-100) Mean Corpuscular Hemoglobin 31 pg (25-35) Mean Corpuscular Hemoglobin Concent 35 g/dL (31-37) Red Cell Distribution Width 13.3 % (11.5-14.5) Platelet Count 231 x10^3/uL (140-400) Neutrophils (%) (Auto) 60 % (31-73) Lymphocytes (%) (Auto) 24 % (24-48) Monocytes (%) (Auto) 13 % (0-9) Eosinophils (%) (Auto) 2 % (0-3) Basophils (%) (Auto) 0 % (0-3) Neutrophils # (Auto) 3.7 x10^3/uL (1.8-7.7) Lymphocytes # (Auto) 1.5 x10^3/uL (1.0-4.8) Monocytes # (Auto) 0.8 x10^3/uL (0.0-1.1) Eosinophils # (Auto) 0.1 x10^3/uL (0.0-0.7) Basophils # (Auto) 0.0 x10^3/uL (0.0-0.2) Sodium Level 137 mmol/L (136-145) Potassium Level 4.2 mmol/L (3.5-5.1) Chloride Level 102 mmol/L (98-107) Carbon Dioxide Level 27 mmol/L (21-32) Anion Gap 8 (6-14) Blood Urea Nitrogen 12 mg/dL (8-26) Creatinine 1.1 mg/dL (0.7-1.3) Estimated GFR (Cockcroft-Gault) 70.6 BUN/Creatinine Ratio 11 (6-20) Glucose Level 110 mg/dL (70-99) Calcium Level 8.2 mg/dL (8.5-10.1) Magnesium Level 2.1 mg/dL (1.8-2.4) Total Bilirubin 0.5 mg/dL (0.2-1.0) Aspartate Amino Transf (AST/SGOT) 37 U/L (15-37) Alanine Aminotransferase (ALT/SGPT) 62 U/L (16-63) Alkaline Phosphatase 90 U/L (46-116) Total Protein 7.1 g/dL (6.4-8.2) Albumin 3.1 g/dL (3.4-5.0) Albumin/Globulin Ratio 0.8 (1.0-1.7) Assessment/Plan Assessment/Plan abdominal pain, diarrhea--seems c/w enteritis will check c diff, abdominal films bowel rest if not improving consider SBFT NORTH DACOSTA MD 08/05/19 1604: CONSULT Assessment/Plan Assessment/Plan pt seen, interviewed and examined plain films reviewed currently no c/o nausea or vomiting RN tried to place NG unsuccessfully times two will hold NG for now and treat expectantly will follow Thanks for consult JERARDO ROSEN APRN Aug 05, 2019 11:39 NORTH DACSOTA MD Aug 05, 2019 16:04
[2019-08-05 15:00] VITALS: BP 134/72
--- NOTE | 2019-08-05 15:19 | RAD ---
ACUTE ABDOMEN SERIES History: Reason: sbo / Spl. Instructions: / History: Technique: Supine and upright views of the abdomen. Comparison: CT August 04, 2019 Findings: No consolidation or pleural effusion. No pneumothorax. No pneumoperitoneum. Moderately dilated air-filled loops of small bowel with air-fluid levels, similar compared to prior CT. Air scattered throughout the imaged colon. Surgical clips right upper quadrant. Impression: 1. Unchanged dilated small bowel loops with air-fluid levels, may represent small bowel obstruction. Electronically signed by: Jose C Alvarado DO (08/05/2019 3:15 PM) [facility]
[2019-08-05 19:40] VITALS: BP 130/72
[2019-08-05 23:21] VITALS: BP 105/50
[2019-08-06 03:36] VITALS: BP 108/66
[2019-08-06] MEDS: POTASSIUM CL 20MEQ D5-0.45NACL 1,000 ML IV SCH ×2 (06:32→17:39)
[2019-08-06] MEDS: PANTOPRAZOLE IV PUSH 40 MG VIAL. IVP SCH (06:33)
[2019-08-06 07:00] VITALS: BP 117/77
--- NOTE | 2019-08-06 07:36 | RAD ---
ACUTE ABDOMEN SERIES History: Small bowel obstruction Comparison: August 05, 2019 Findings: Single view of the chest, 2 supine AP views of the abdomen, and single upright AP view of the abdomen are submitted. There is no new lung infiltrate, pleural fluid, or pneumothorax. Cardiac silhouette is stable. No free air is identified. There are persistent gas dilated loops of small bowel although decreased. There is some gas in the colon. There has been cholecystectomy. Impression: 1. There are persistent gas dilated loops of small bowel although decreased. Electronically signed by: Shmuel Parsons MD (08/06/2019 7:33 AM) [id number]
[2019-08-06 07:37] LABS: BASO % 0 % (0-3); EOS # 0.2 x10^3/uL (0.0-0.7); EOS % 4 % (0-3); HEMATOCRIT 41.4 % (39.0-53.0); HEMOGLOBIN 14.4 g/dL (13.0-17.5); LYMPH # 1.4 x10^3/uL (1.0-4.8); LYMPH % 31 % (24-48); MEAN CORPUSCULAR HEMOGLOBIN 31 pg (25-35); MEAN CORPUSCULAR HGB CONC 35 g/dL (31-37); MEAN CORPUSCULAR VOLUME 89 fL (79-100); MONO # 0.5 x10^3/uL (0.0-1.1); MONO % 11 % (0-9); NEUT # 2.4 x10^3/uL (1.8-7.7); NEUT % 54 % (31-73); PLATELET COUNT 231 x10^3/uL (140-400); PROTHROMBIN TIME PATIENT 13.4 SEC (11.7-14.0); RED BLOOD COUNT 4.64 x10^6/uL (4.30-5.70); RED CELL DISTRIBUTION WIDTH 13.1 % (11.5-14.5); WHITE BLOOD COUNT 4.5 x10^3/uL (4.0-11.0)
[2019-08-06 07:51] LABS: CALCIUM 8.5 mg/dL (8.5-10.1); GFR 78.8; MAGNESIUM 2.2 mg/dL (1.8-2.4); POTASSIUM 4.4 mmol/L (3.5-5.1)
--- NOTE | 2019-08-06 10:37 | PDOC ---
SURGICAL PROGRESS NOTE Subjective pt reports having two stools Dr Zamudio present, examining patient Vital Signs Vital Signs Date Time Temp Pulse Resp B/P (MAP) Pulse Ox O2 Delivery O2 Flow Rate FiO2 08/06/19 07:00 98.1 65 20 117/77 (90) 95 Room Air 98.1 I&O Intake and Output 08/06/19 07:00 Intake Total 0 ml Balance 0 ml Intake Oral 0 ml # Voids 3 # Bowel Movements 2 PATIENT HAS A QUINTEROS: No Abdomen: Soft, Other (tender to deep palpation) Labs Laboratory Tests Test 08/04/19 10:50 08/05/19 04:15 08/05/19 11:00 08/06/19 07:10 Urine Collection Type Unknown Urine Color Yellow Urine Clarity Clear Urine pH 6.0 (<5.0-8.0) Urine Specific [place] 1.025 (1.000-1.030) Urine Protein Negative mg/dL (NEG-TRACE) Urine Glucose (UA) Negative mg/dL (NEG) Urine Ketones (Stick) Negative mg/dL (NEG) Urine Blood Negative (NEG) Urine Nitrite Negative (NEG) Urine Bilirubin Negative (NEG) Urine Urobilinogen Dipstick 1.0 mg/dL (0.2 mg/dL) Urine Leukocyte Esterase Negative (NEG) Urine RBC 0 /HPF (0-2) Urine WBC Rare /HPF (0-4) Urine Squamous Epithelial Cells Mod /LPF Urine Bacteria Few /HPF (0-FEW) Urine Mucus Mod /LPF White Blood Count 6.1 x10^3/uL (4.0-11.0) 4.5 x10^3/uL (4.0-11.0) Red Blood Count 4.83 x10^6/uL (4.30-5.70) 4.64 x10^6/uL (4.30-5.70) Hemoglobin 15.1 g/dL (13.0-17.5) 14.4 g/dL (13.0-17.5) Hematocrit 43.1 % (39.0-53.0) 41.4 % (39.0-53.0) Mean Corpuscular Volume 89 fL (79-100) 89 fL (79-100) Mean Corpuscular Hemoglobin 31 pg (25-35) 31 pg (25-35) Mean Corpuscular Hemoglobin Concent 35 g/dL (31-37) 35 g/dL (31-37) Red Cell Distribution Width 13.3 % (11.5-14.5) 13.1 % (11.5-14.5) Platelet Count 231 x10^3/uL (140-400) 231 x10^3/uL (140-400) Neutrophils (%) (Auto) 60 % (31-73) 54 % (31-73) Lymphocytes (%) (Auto) 24 % (24-48) 31 % (24-48) Monocytes (%) (Auto) 13 % (0-9) 11 % (0-9) Eosinophils (%) (Auto) 2 % (0-3) 4 % (0-3) Basophils (%) (Auto) 0 % (0-3) 0 % (0-3) Neutrophils # (Auto) 3.7 x10^3/uL (1.8-7.7) 2.4 x10^3/uL (1.8-7.7) Lymphocytes # (Auto) 1.5 x10^3/uL (1.0-4.8) 1.4 x10^3/uL (1.0-4.8) Monocytes # (Auto) 0.8 x10^3/uL (0.0-1.1) 0.5 x10^3/uL (0.0-1.1) Eosinophils # (Auto) 0.1 x10^3/uL (0.0-0.7) 0.2 x10^3/uL (0.0-0.7) Basophils # (Auto) 0.0 x10^3/uL (0.0-0.2) 0.0 x10^3/uL (0.0-0.2) Sodium Level 137 mmol/L (136-145) 139 mmol/L (136-145) Potassium Level 4.2 mmol/L (3.5-5.1) 4.4 mmol/L (3.5-5.1) Chloride Level 102 mmol/L (98-107) 105 mmol/L (98-107) Carbon Dioxide Level 27 mmol/L (21-32) 27 mmol/L (21-32) Anion Gap 8 (6-14) 7 (6-14) Blood Urea Nitrogen 12 mg/dL (8-26) 7 mg/dL (8-26) Creatinine 1.1 mg/dL (0.7-1.3) 1.0 mg/dL (0.7-1.3) Estimated GFR (Cockcroft-Gault) 70.6 78.8 BUN/Creatinine Ratio 11 (6-20) Glucose Level 110 mg/dL (70-99) 114 mg/dL (70-99) Calcium Level 8.2 mg/dL (8.5-10.1) 8.5 mg/dL (8.5-10.1) Magnesium Level 2.1 mg/dL (1.8-2.4) 2.2 mg/dL (1.8-2.4) Total Bilirubin 0.5 mg/dL (0.2-1.0) Aspartate Amino Transf (AST/SGOT) 37 U/L (15-37) Alanine Aminotransferase (ALT/SGPT) 62 U/L (16-63) Alkaline Phosphatase 90 U/L (46-116) Total Protein 7.1 g/dL (6.4-8.2) Albumin 3.1 g/dL (3.4-5.0) Albumin/Globulin Ratio 0.8 (1.0-1.7) Stool Campylobacter PCR Negative (NEGATIVE) Stool E. coli Shiga Toxins (PCR) Negative (NEGATIVE) Stool Salmonella PCR Negative (NEGATIVE) Stool Shigella PCR Negative (NEGATIVE) Clostridium difficile Toxin (PCR) Negative (NEGATIVE) Prothrombin Time 13.4 SEC (11.7-14.0) Prothromb Time International Ratio 1.1 (0.8-1.1) Laboratory Tests Test 08/05/19 11:00 08/06/19 07:10 Stool Campylobacter PCR Negative (NEGATIVE) Stool E. coli Shiga Toxins (PCR) Negative (NEGATIVE) Stool Salmonella PCR Negative (NEGATIVE) Stool Shigella PCR Negative (NEGATIVE) Clostridium difficile Toxin (PCR) Negative (NEGATIVE) White Blood Count 4.5 x10^3/uL (4.0-11.0) Red Blood Count 4.64 x10^6/uL (4.30-5.70) Hemoglobin 14.4 g/dL (13.0-17.5) Hematocrit 41.4 % (39.0-53.0) Mean Corpuscular Volume 89 fL (79-100) Mean Corpuscular Hemoglobin 31 pg (25-35) Mean Corpuscular Hemoglobin Concent 35 g/dL (31-37) Red Cell Distribution Width 13.1 % (11.5-14.5) Platelet Count 231 x10^3/uL (140-400) Neutrophils (%) (Auto) 54 % (31-73) Lymphocytes (%) (Auto) 31 % (24-48) Monocytes (%) (Auto) 11 % (0-9) Eosinophils (%) (Auto) 4 % (0-3) Basophils (%) (Auto) 0 % (0-3) Neutrophils # (Auto) 2.4 x10^3/uL (1.8-7.7) Lymphocytes # (Auto) 1.4 x10^3/uL (1.0-4.8) Monocytes # (Auto) 0.5 x10^3/uL (0.0-1.1) Eosinophils # (Auto) 0.2 x10^3/uL (0.0-0.7) Basophils # (Auto) 0.0 x10^3/uL (0.0-0.2) Prothrombin Time 13.4 SEC (11.7-14.0) Prothromb Time International Ratio 1.1 (0.8-1.1) Sodium Level 139 mmol/L (136-145) Potassium Level 4.4 mmol/L (3.5-5.1) Chloride Level 105 mmol/L (98-107) Carbon Dioxide Level 27 mmol/L (21-32) Anion Gap 7 (6-14) Blood Urea Nitrogen 7 mg/dL (8-26) Creatinine 1.0 mg/dL (0.7-1.3) Estimated GFR (Cockcroft-Gault) 78.8 Glucose Level 114 mg/dL (70-99) Calcium Level 8.5 mg/dL (8.5-10.1) Magnesium Level 2.2 mg/dL (1.8-2.4) Assessment/Plan enteritis/ileus/pSBO try some clears no acute surgical recs Justicifation of Admission Dx: Justifications for Admission: Justification of Admission Dx: Yes NORTH DACOSTA MD Aug 06, 2019 10:37
--- NOTE | 2019-08-06 10:43 | PDOC ---
PROGRESS NOTES Subjective Subjective had 2 loose stools. still with epigastric and mid abdominal pain. no vomiting. lab reviewed. discussed with dr. hernandez. acute abdominal series showed persistent small bowel loop dilatation but less. Objective Objective Vital Signs Date Time Temp Pulse Resp B/P (MAP) Pulse Ox O2 Delivery O2 Flow Rate FiO2 08/06/19 07:00 98.1 65 20 117/77 (90) 95 Room Air 98.1 Intake and Output 08/06/19 07:00 Intake Total 0 ml Balance 0 ml Intake Oral 0 ml # Voids 3 # Bowel Movements 2 Physical Exam Abdomen: Normal bowel sounds, Soft, Other (tender epigastrium and mid abdomen. no guarding) Heart: Regular rate, Normal S1, Normal S2 Extremities: No edema General: Alert HEENT: Atraumatic Lungs: Clear to auscultation Neuro: Normal speech Psych/Mental Status: Mental status NL Skin: No rashes Assessment Assessment . partial small bowel obstruction clinically improved gastroenteritis . Hypomagnesemia. treated Asthma. History of a cholecystectomy. Plan Plan of Care advance to clear liquids decrease iv fluids zofran prn iv moprhine prn iv protonix Comment Review of Relevant I have reviewed the following items dimitri (where applicable) has been applied. Labs Laboratory Tests Test 08/04/19 10:50 08/05/19 04:15 08/05/19 11:00 08/06/19 07:10 Urine Collection Type Unknown Urine Color Yellow Urine Clarity Clear Urine pH 6.0 (<5.0-8.0) Urine Specific [place] 1.025 (1.000-1.030) Urine Protein Negative mg/dL (NEG-TRACE) Urine Glucose (UA) Negative mg/dL (NEG) Urine Ketones (Stick) Negative mg/dL (NEG) Urine Blood Negative (NEG) Urine Nitrite Negative (NEG) Urine Bilirubin Negative (NEG) Urine Urobilinogen Dipstick 1.0 mg/dL (0.2 mg/dL) Urine Leukocyte Esterase Negative (NEG) Urine RBC 0 /HPF (0-2) Urine WBC Rare /HPF (0-4) Urine Squamous Epithelial Cells Mod /LPF Urine Bacteria Few /HPF (0-FEW) Urine Mucus Mod /LPF White Blood Count 6.1 x10^3/uL (4.0-11.0) 4.5 x10^3/uL (4.0-11.0) Red Blood Count 4.83 x10^6/uL (4.30-5.70) 4.64 x10^6/uL (4.30-5.70) Hemoglobin 15.1 g/dL (13.0-17.5) 14.4 g/dL (13.0-17.5) Hematocrit 43.1 % (39.0-53.0) 41.4 % (39.0-53.0) Mean Corpuscular Volume 89 fL (79-100) 89 fL (79-100) Mean Corpuscular Hemoglobin 31 pg (25-35) 31 pg (25-35) Mean Corpuscular Hemoglobin Concent 35 g/dL (31-37) 35 g/dL (31-37) Red Cell Distribution Width 13.3 % (11.5-14.5) 13.1 % (11.5-14.5) Platelet Count 231 x10^3/uL (140-400) 231 x10^3/uL (140-400) Neutrophils (%) (Auto) 60 % (31-73) 54 % (31-73) Lymphocytes (%) (Auto) 24 % (24-48) 31 % (24-48) Monocytes (%) (Auto) 13 % (0-9) 11 % (0-9) Eosinophils (%) (Auto) 2 % (0-3) 4 % (0-3) Basophils (%) (Auto) 0 % (0-3) 0 % (0-3) Neutrophils # (Auto) 3.7 x10^3/uL (1.8-7.7) 2.4 x10^3/uL (1.8-7.7) Lymphocytes # (Auto) 1.5 x10^3/uL (1.0-4.8) 1.4 x10^3/uL (1.0-4.8) Monocytes # (Auto) 0.8 x10^3/uL (0.0-1.1) 0.5 x10^3/uL (0.0-1.1) Eosinophils # (Auto) 0.1 x10^3/uL (0.0-0.7) 0.2 x10^3/uL (0.0-0.7) Basophils # (Auto) 0.0 x10^3/uL (0.0-0.2) 0.0 x10^3/uL (0.0-0.2) Sodium Level 137 mmol/L (136-145) 139 mmol/L (136-145) Potassium Level 4.2 mmol/L (3.5-5.1) 4.4 mmol/L (3.5-5.1) Chloride Level 102 mmol/L (98-107) 105 mmol/L (98-107) Carbon Dioxide Level 27 mmol/L (21-32) 27 mmol/L (21-32) Anion Gap 8 (6-14) 7 (6-14) Blood Urea Nitrogen 12 mg/dL (8-26) 7 mg/dL (8-26) Creatinine 1.1 mg/dL (0.7-1.3) 1.0 mg/dL (0.7-1.3) Estimated GFR (Cockcroft-Gault) 70.6 78.8 BUN/Creatinine Ratio 11 (6-20) Glucose Level 110 mg/dL (70-99) 114 mg/dL (70-99) Calcium Level 8.2 mg/dL (8.5-10.1) 8.5 mg/dL (8.5-10.1) Magnesium Level 2.1 mg/dL (1.8-2.4) 2.2 mg/dL (1.8-2.4) Total Bilirubin 0.5 mg/dL (0.2-1.0) Aspartate Amino Transf (AST/SGOT) 37 U/L (15-37) Alanine Aminotransferase (ALT/SGPT) 62 U/L (16-63) Alkaline Phosphatase 90 U/L (46-116) Total Protein 7.1 g/dL (6.4-8.2) Albumin 3.1 g/dL (3.4-5.0) Albumin/Globulin Ratio 0.8 (1.0-1.7) Stool Campylobacter PCR Negative (NEGATIVE) Stool E. coli Shiga Toxins (PCR) Negative (NEGATIVE) Stool Salmonella PCR Negative (NEGATIVE) Stool Shigella PCR Negative (NEGATIVE) Clostridium difficile Toxin (PCR) Negative (NEGATIVE) Prothrombin Time 13.4 SEC (11.7-14.0) Prothromb Time International Ratio 1.1 (0.8-1.1) Laboratory Tests Test 08/05/19 11:00 08/06/19 07:10 Stool Campylobacter PCR Negative (NEGATIVE) Stool E. coli Shiga Toxins (PCR) Negative (NEGATIVE) Stool Salmonella PCR Negative (NEGATIVE) Stool Shigella PCR Negative (NEGATIVE) Clostridium difficile Toxin (PCR) Negative (NEGATIVE) White Blood Count 4.5 x10^3/uL (4.0-11.0) Red Blood Count 4.64 x10^6/uL (4.30-5.70) Hemoglobin 14.4 g/dL (13.0-17.5) Hematocrit 41.4 % (39.0-53.0) Mean Corpuscular Volume 89 fL (79-100) Mean Corpuscular Hemoglobin 31 pg (25-35) Mean Corpuscular Hemoglobin Concent 35 g/dL (31-37) Red Cell Distribution Width 13.1 % (11.5-14.5) Platelet Count 231 x10^3/uL (140-400) Neutrophils (%) (Auto) 54 % (31-73) Lymphocytes (%) (Auto) 31 % (24-48) Monocytes (%) (Auto) 11 % (0-9) Eosinophils (%) (Auto) 4 % (0-3) Basophils (%) (Auto) 0 % (0-3) Neutrophils # (Auto) 2.4 x10^3/uL (1.8-7.7) Lymphocytes # (Auto) 1.4 x10^3/uL (1.0-4.8) Monocytes # (Auto) 0.5 x10^3/uL (0.0-1.1) Eosinophils # (Auto) 0.2 x10^3/uL (0.0-0.7) Basophils # (Auto) 0.0 x10^3/uL (0.0-0.2) Prothrombin Time 13.4 SEC (11.7-14.0) Prothromb Time International Ratio 1.1 (0.8-1.1) Sodium Level 139 mmol/L (136-145) Potassium Level 4.4 mmol/L (3.5-5.1) Chloride Level 105 mmol/L (98-107) Carbon Dioxide Level 27 mmol/L (21-32) Anion Gap 7 (6-14) Blood Urea Nitrogen 7 mg/dL (8-26) Creatinine 1.0 mg/dL (0.7-1.3) Estimated GFR (Cockcroft-Gault) 78.8 Glucose Level 114 mg/dL (70-99) Calcium Level 8.5 mg/dL (8.5-10.1) Magnesium Level 2.2 mg/dL (1.8-2.4) Medications Current Medications Potassium Chloride/Dextrose/ Sod Cl 1,000 ml @ 125 mls/hr Q8H IV Last administered on 08/06/19 06:32; Start 08/03/19 at 14:00 Ondansetron HCl (Zofran) 4 mg PRN Q6HRS PRN IVP NAUSEA/VOMITING Last administered on 08/05/19at 07:14; Start 08/03/19 at 14:00 Acetaminophen (Tylenol) 650 mg PRN Q6HRS PRN PO MILD PAIN / TEMP > 100.3'F Last administered on 08/03/19at 14:59; Start 08/03/19 at 14:00 Morphine Sulfate (Morphine Sulfate) 1 mg PRN Q4HRS PRN IV MODERATE TO SEVERE PAIN Last administered on 08/04/19at 19:28; Start 08/03/19 at 14:00 Albuterol Sulfate (Ventolin Neb Soln) 2.5 mg PRN Q4HRS PRN NEB SHORTNESS OF BREATH; Start 08/03/19 at 14:15 Pantoprazole Sodium (PROTONIX VIAL for IV PUSH) 40 mg DAILYAC IVP Last administered on 08/06/19at 06:33; Start 08/03/19 at 16:30 Multi-Ingredient Mouthwash/Gargle (Gi Cocktail) 20 ml PRN QID PRN PO epigastric pain Last administered on 08/04/19at 19:28; Start 08/04/19 at 10:30 Magnesium Sulfate 50 ml @ 25 mls/hr 1X ONCE IV Last administered on 08/04/19at 14:44; Start 08/04/19 at 12:00; Stop 08/04/19 at 13:59; Status DC Active Scripts Active Reported Claritin-D 24 Hour Tablet (Loratadine/Pseudoephedrine) 1 Each Tab.er.24h 1 Tab PO PRN DAILY PRN 10 Days Proair Hfa (Albuterol Sulfate) 8.5 Gm Hfa.aer.ad 2 Puff IH PRN Q4-6HRS PRN 21 Days Vitals/I & O Vital Sign - Last 24 Hours 08/05/19 08/05/19 08/05/19 08/05/19 11:00 15:00 19:40 20:00 Temp 98.4 98.2 98.0 98.4 98.2 98.0 Pulse 70 61 67 Resp 16 16 18 B/P (MAP) 127/79 (95) 134/72 (92) 130/72 (91) Pulse Ox 96 96 99 O2 Delivery Room Air Room Air Room Air Room Air 08/05/19 08/06/19 08/06/19 23:21 03:36 07:00 Temp 97.9 98.5 98.1 97.9 98.5 98.1 Pulse 69 57 65 Resp 18 16 20 B/P (MAP) 105/50 (68) 108/66 (80) 117/77 (90) Pulse Ox 93 95 95 O2 Delivery Room Air Room Air Room Air Intake and Output 08/05/19 08/05/19 08/06/19 15:00 23:00 07:00 Intake Total 0 ml Balance 0 ml SKY MCGHEE MD Aug 06, 2019 10:43
[2019-08-06 11:11] VITALS: BP 112/74
[2019-08-06 14:56] VITALS: BP 127/78
[2019-08-06 19:00] VITALS: BP 129/67
[2019-08-06 23:00] VITALS: BP 96/67
[2019-08-07 02:00] VITALS: BP 112/63
[2019-08-07] MEDS: POTASSIUM CL 20MEQ D5-0.45NACL 1,000 ML IV SCH ×3 (05:15→22:30)
[2019-08-07] MEDS: PANTOPRAZOLE IV PUSH 40 MG VIAL. IVP SCH (06:31)
[2019-08-07 07:00] VITALS: BP 114/67
--- NOTE | 2019-08-07 10:47 | PDOC ---
PROGRESS NOTES Subjective Subjective has diarrhea every 2 hours. abdominal pain is diffuse but worse in epigastric area. stool for c. diff and salmonella and e. coli shiga toxin and shigella and campylobacter are negative. Objective Objective Vital Signs Date Time Temp Pulse Resp B/P (MAP) Pulse Ox O2 Delivery O2 Flow Rate FiO2 08/07/19 07:00 98.0 56 18 114/67 (83) 96 Room Air 98.0 Intake and Output 08/07/19 07:00 Intake Total 500 ml Balance 500 ml Intake Oral 500 ml # Voids 6 # Bowel Movements 2 Physical Exam Abdomen: Normal bowel sounds, Soft, Other (tender epigastrium and LUQ and LLQ and RLQ. no guarding,.) Heart: Regular rate, Normal S1, Normal S2 Extremities: No edema General: Alert HEENT: Atraumatic Lungs: Clear to auscultation Neuro: Normal speech Psych/Mental Status: Mental status NL Skin: No rashes Assessment Assessment partial small bowel obstruction clinically resolved gastroenteritis with persistent diarrhea. rule out acute onset of IBD abdominal pain . Hypomagnesemia. treated Asthma. History of a cholecystectomy. Plan Plan of Care continue clear liquids cholestyramine iv fluids lab tomorrow Comment Review of Relevant I have reviewed the following items dimitri (where applicable) has been applied. Labs Laboratory Tests Test 08/05/19 11:00 08/06/19 07:10 Stool Campylobacter PCR Negative (NEGATIVE) Stool E. coli Shiga Toxins (PCR) Negative (NEGATIVE) Stool Salmonella PCR Negative (NEGATIVE) Stool Shigella PCR Negative (NEGATIVE) Clostridium difficile Toxin (PCR) Negative (NEGATIVE) White Blood Count 4.5 x10^3/uL (4.0-11.0) Red Blood Count 4.64 x10^6/uL (4.30-5.70) Hemoglobin 14.4 g/dL (13.0-17.5) Hematocrit 41.4 % (39.0-53.0) Mean Corpuscular Volume 89 fL (79-100) Mean Corpuscular Hemoglobin 31 pg (25-35) Mean Corpuscular Hemoglobin Concent 35 g/dL (31-37) Red Cell Distribution Width 13.1 % (11.5-14.5) Platelet Count 231 x10^3/uL (140-400) Neutrophils (%) (Auto) 54 % (31-73) Lymphocytes (%) (Auto) 31 % (24-48) Monocytes (%) (Auto) 11 % (0-9) Eosinophils (%) (Auto) 4 % (0-3) Basophils (%) (Auto) 0 % (0-3) Neutrophils # (Auto) 2.4 x10^3/uL (1.8-7.7) Lymphocytes # (Auto) 1.4 x10^3/uL (1.0-4.8) Monocytes # (Auto) 0.5 x10^3/uL (0.0-1.1) Eosinophils # (Auto) 0.2 x10^3/uL (0.0-0.7) Basophils # (Auto) 0.0 x10^3/uL (0.0-0.2) Prothrombin Time 13.4 SEC (11.7-14.0) Prothromb Time International Ratio 1.1 (0.8-1.1) Sodium Level 139 mmol/L (136-145) Potassium Level 4.4 mmol/L (3.5-5.1) Chloride Level 105 mmol/L (98-107) Carbon Dioxide Level 27 mmol/L (21-32) Anion Gap 7 (6-14) Blood Urea Nitrogen 7 mg/dL (8-26) Creatinine 1.0 mg/dL (0.7-1.3) Estimated GFR (Cockcroft-Gault) 78.8 Glucose Level 114 mg/dL (70-99) Calcium Level 8.5 mg/dL (8.5-10.1) Magnesium Level 2.2 mg/dL (1.8-2.4) Medications Current Medications Potassium Chloride/Dextrose/ Sod Cl 1,000 ml @ 80 mls/hr [id number] IV Last administered on 08/07/19at 05:15; Start 08/03/19 at 14:00 Ondansetron HCl (Zofran) 4 mg PRN Q6HRS PRN IVP NAUSEA/VOMITING Last administered on 08/05/19at 07:14; Start 08/03/19 at 14:00 Acetaminophen (Tylenol) 650 mg PRN Q6HRS PRN PO MILD PAIN / TEMP > 100.3'F Last administered on 08/03/19at 14:59; Start 08/03/19 at 14:00 Morphine Sulfate (Morphine Sulfate) 1 mg PRN Q4HRS PRN IV MODERATE TO SEVERE PAIN Last administered on 08/04/19at 19:28; Start 08/03/19 at 14:00 Albuterol Sulfate (Ventolin Neb Soln) 2.5 mg PRN Q4HRS PRN NEB SHORTNESS OF BREATH; Start 08/03/19 at 14:15 Pantoprazole Sodium (PROTONIX VIAL for IV PUSH) 40 mg DAILYAC IVP Last administered on 08/07/19at 06:31; Start 08/03/19 at 16:30 Multi-Ingredient Mouthwash/Gargle (Gi Cocktail) 20 ml PRN QID PRN PO epigastric pain Last administered on 08/04/19at 19:28; Start 08/04/19 at 10:30 Magnesium Sulfate 50 ml @ 25 mls/hr 1X ONCE IV Last administered on 08/04/19at 14:44; Start 08/04/19 at 12:00; Stop 08/04/19 at 13:59; Status DC Active Scripts Active Reported Claritin-D 24 Hour Tablet (Loratadine/Pseudoephedrine) 1 Each Tab.er.24h 1 Tab PO PRN DAILY PRN 10 Days Proair Hfa (Albuterol Sulfate) 8.5 Gm Hfa.aer.ad 2 Puff IH PRN Q4-6HRS PRN 21 Days Vitals/I & O Vital Sign - Last 24 Hours 08/06/19 08/06/19 08/06/19 08/06/19 11:11 14:56 19:00 20:00 Temp 98.4 98.2 97.8 98.4 98.2 97.8 Pulse 62 80 64 Resp 18 B/P (MAP) 112/74 (87) 127/78 (94) 129/67 (87) Pulse Ox 96 98 96 O2 Delivery Room Air Room Air Room Air Room Air 08/06/19 08/07/19 08/07/19 23:00 02:00 07:00 Temp 98.1 98.1 98.0 98.1 98.1 98.0 Pulse 55 60 56 Resp 18 18 18 B/P (MAP) 96/67 (77) 112/63 (79) 114/67 (83) Pulse Ox 95 96 96 O2 Delivery Room Air Room Air Room Air Intake and Output 08/06/19 08/06/19 08/07/19 15:00 23:00 07:00 Intake Total 100 ml 400 ml Balance 100 ml 400 ml SKY MCGHEE MD Aug 07, 2019 10:47
[2019-08-07 11:00] VITALS: BP 112/77
--- NOTE | 2019-08-07 12:36 | PDOC ---
SURGICAL PROGRESS NOTE Subjective having a loose stool about every two hours still some mild right sided pain Vital Signs Vital Signs Date Time Temp Pulse Resp B/P (MAP) Pulse Ox O2 Delivery O2 Flow Rate FiO2 08/07/19 11:00 98.2 55 18 112/77 (89) 95 Room Air 98.2 I&O Intake and Output 08/07/19 07:00 Intake Total 500 ml Balance 500 ml Intake Oral 500 ml # Voids 6 # Bowel Movements 2 PATIENT HAS A QUINTEROS: No General: Alert, Oriented X3 Abdomen: Soft, Other (minimally TTP) Labs Laboratory Tests Test 08/06/19 07:10 White Blood Count 4.5 x10^3/uL (4.0-11.0) Red Blood Count 4.64 x10^6/uL (4.30-5.70) Hemoglobin 14.4 g/dL (13.0-17.5) Hematocrit 41.4 % (39.0-53.0) Mean Corpuscular Volume 89 fL (79-100) Mean Corpuscular Hemoglobin 31 pg (25-35) Mean Corpuscular Hemoglobin Concent 35 g/dL (31-37) Red Cell Distribution Width 13.1 % (11.5-14.5) Platelet Count 231 x10^3/uL (140-400) Neutrophils (%) (Auto) 54 % (31-73) Lymphocytes (%) (Auto) 31 % (24-48) Monocytes (%) (Auto) 11 % (0-9) Eosinophils (%) (Auto) 4 % (0-3) Basophils (%) (Auto) 0 % (0-3) Neutrophils # (Auto) 2.4 x10^3/uL (1.8-7.7) Lymphocytes # (Auto) 1.4 x10^3/uL (1.0-4.8) Monocytes # (Auto) 0.5 x10^3/uL (0.0-1.1) Eosinophils # (Auto) 0.2 x10^3/uL (0.0-0.7) Basophils # (Auto) 0.0 x10^3/uL (0.0-0.2) Prothrombin Time 13.4 SEC (11.7-14.0) Prothromb Time International Ratio 1.1 (0.8-1.1) Sodium Level 139 mmol/L (136-145) Potassium Level 4.4 mmol/L (3.5-5.1) Chloride Level 105 mmol/L (98-107) Carbon Dioxide Level 27 mmol/L (21-32) Anion Gap 7 (6-14) Blood Urea Nitrogen 7 mg/dL (8-26) Creatinine 1.0 mg/dL (0.7-1.3) Estimated GFR (Cockcroft-Gault) 78.8 Glucose Level 114 mg/dL (70-99) Calcium Level 8.5 mg/dL (8.5-10.1) Magnesium Level 2.2 mg/dL (1.8-2.4) Assessment/Plan slow improvement continue as per Dr Zamudio no new surgical recs Justicifation of Admission Dx: Justifications for Admission: Justification of Admission Dx: Yes NORTH DACOSTA MD Aug 07, 2019 12:36
[2019-08-07 15:00] VITALS: BP 112/69
[2019-08-07 19:00] VITALS: BP 119/70
[2019-08-07] MEDS: CHOLESTYRAMINE/ASPARTAME 4 GM PACKET PO SCH (21:20)
[2019-08-07 23:00] VITALS: BP 110/53
[2019-08-08 03:13] VITALS: BP 114/72
[2019-08-08 05:20] LABS: BASO % 0 % (0-3); EOS # 0.2 x10^3/uL (0.0-0.7); EOS % 3 % (0-3); HEMATOCRIT 41.4 % (39.0-53.0); HEMOGLOBIN 14.6 g/dL (13.0-17.5); LYMPH # 1.8 x10^3/uL (1.0-4.8); LYMPH % 29 % (24-48); MEAN CORPUSCULAR HEMOGLOBIN 31 pg (25-35); MEAN CORPUSCULAR HGB CONC 35 g/dL (31-37); MEAN CORPUSCULAR VOLUME 89 fL (79-100); MONO # 0.6 x10^3/uL (0.0-1.1); MONO % 10 % (0-9); NEUT # 3.7 x10^3/uL (1.8-7.7); NEUT % 58 % (31-73); PLATELET COUNT 240 x10^3/uL (140-400); RED BLOOD COUNT 4.66 x10^6/uL (4.30-5.70); WHITE BLOOD COUNT 6.4 x10^3/uL (4.0-11.0)
[2019-08-08 05:42] LABS: CALCIUM 8.8 mg/dL (8.5-10.1); CREATININE 1.1 mg/dL (0.7-1.3); GFR 70.6; POTASSIUM 4.2 mmol/L (3.5-5.1)
[2019-08-08 07:54] VITALS: BP 129/73
--- NOTE | 2019-08-08 08:53 | NUR ---
SW following. Discussed with RN, chart reviewed. Pt from home, room air, clear liquid diet. Chart documenting for acute abdominal series today. SW will continue to follow.
[2019-08-08] MEDS: CHOLESTYRAMINE/ASPARTAME 4 GM PACKET PO SCH ×2 (09:38→21:27)
[2019-08-08] MEDS: PANTOPRAZOLE IV PUSH 40 MG VIAL. IVP SCH (09:39)
[2019-08-08] MEDS: POTASSIUM CL 20MEQ D5-0.45NACL 1,000 ML IV SCH (09:41)
--- NOTE | 2019-08-08 09:51 | PDOC ---
JERARDO ROSEN PHOTOGRAPHER 08/08/19 0951: SURGICAL PROGRESS NOTE Subjective stool this am still with bloating taking some liquids sore but improved pain asking about possible celiac disease Vital Signs Vital Signs Date Time Temp Pulse Resp B/P (MAP) Pulse Ox O2 Delivery O2 Flow Rate FiO2 08/08/19 07:54 97.9 64 18 129/73 (91) 95 Room Air 97.9 I&O Intake and Output 08/08/19 07:00 Intake Total 1760 ml Balance 1760 ml Intake Oral 240 ml IV Total 560 ml Other 960 ml # Voids 8 # Bowel Movements 4 General: Alert, Oriented X3, Cooperative Abdomen: Soft, Other (midly distended) Labs Laboratory Tests Test 08/08/19 04:50 White Blood Count 6.4 x10^3/uL (4.0-11.0) Red Blood Count 4.66 x10^6/uL (4.30-5.70) Hemoglobin 14.6 g/dL (13.0-17.5) Hematocrit 41.4 % (39.0-53.0) Mean Corpuscular Volume 89 fL (79-100) Mean Corpuscular Hemoglobin 31 pg (25-35) Mean Corpuscular Hemoglobin Concent 35 g/dL (31-37) Red Cell Distribution Width 13.0 % (11.5-14.5) Platelet Count 240 x10^3/uL (140-400) Neutrophils (%) (Auto) 58 % (31-73) Lymphocytes (%) (Auto) 29 % (24-48) Monocytes (%) (Auto) 10 % (0-9) Eosinophils (%) (Auto) 3 % (0-3) Basophils (%) (Auto) 0 % (0-3) Neutrophils # (Auto) 3.7 x10^3/uL (1.8-7.7) Lymphocytes # (Auto) 1.8 x10^3/uL (1.0-4.8) Monocytes # (Auto) 0.6 x10^3/uL (0.0-1.1) Eosinophils # (Auto) 0.2 x10^3/uL (0.0-0.7) Basophils # (Auto) 0.0 x10^3/uL (0.0-0.2) Sodium Level 141 mmol/L (136-145) Potassium Level 4.2 mmol/L (3.5-5.1) Chloride Level 105 mmol/L (98-107) Carbon Dioxide Level 27 mmol/L (21-32) Anion Gap 9 (6-14) Blood Urea Nitrogen 8 mg/dL (8-26) Creatinine 1.1 mg/dL (0.7-1.3) Estimated GFR (Cockcroft-Gault) 70.6 Glucose Level 97 mg/dL (70-99) Calcium Level 8.8 mg/dL (8.5-10.1) Magnesium Level 2.0 mg/dL (1.8-2.4) Laboratory Tests Test 08/08/19 04:50 White Blood Count 6.4 x10^3/uL (4.0-11.0) Red Blood Count 4.66 x10^6/uL (4.30-5.70) Hemoglobin 14.6 g/dL (13.0-17.5) Hematocrit 41.4 % (39.0-53.0) Mean Corpuscular Volume 89 fL (79-100) Mean Corpuscular Hemoglobin 31 pg (25-35) Mean Corpuscular Hemoglobin Concent 35 g/dL (31-37) Red Cell Distribution Width 13.0 % (11.5-14.5) Platelet Count 240 x10^3/uL (140-400) Neutrophils (%) (Auto) 58 % (31-73) Lymphocytes (%) (Auto) 29 % (24-48) Monocytes (%) (Auto) 10 % (0-9) Eosinophils (%) (Auto) 3 % (0-3) Basophils (%) (Auto) 0 % (0-3) Neutrophils # (Auto) 3.7 x10^3/uL (1.8-7.7) Lymphocytes # (Auto) 1.8 x10^3/uL (1.0-4.8) Monocytes # (Auto) 0.6 x10^3/uL (0.0-1.1) Eosinophils # (Auto) 0.2 x10^3/uL (0.0-0.7) Basophils # (Auto) 0.0 x10^3/uL (0.0-0.2) Sodium Level 141 mmol/L (136-145) Potassium Level 4.2 mmol/L (3.5-5.1) Chloride Level 105 mmol/L (98-107) Carbon Dioxide Level 27 mmol/L (21-32) Anion Gap 9 (6-14) Blood Urea Nitrogen 8 mg/dL (8-26) Creatinine 1.1 mg/dL (0.7-1.3) Estimated GFR (Cockcroft-Gault) 70.6 Glucose Level 97 mg/dL (70-99) Calcium Level 8.8 mg/dL (8.5-10.1) Magnesium Level 2.0 mg/dL (1.8-2.4) Assessment/Plan xrays pending ? consider SBFT to further eval Justicifation of Admission Dx: Justifications for Admission: Justification of Admission Dx: Yes NORTH DACOSTA MD 08/08/19 1242: SURGICAL PROGRESS NOTE Assessment/Plan pt seen and examined agree with above proceed with SBFT await those results JERARDO ROSEN APRN Aug 08, 2019 09:51 NORTH DACOSTA MD Aug 08, 2019 12:42
[2019-08-08] MEDS ORDERED: HYDROcodone/APAP 5/325MG 1 TAB TABLET PO PRN (10:15)
--- NOTE | 2019-08-08 10:15 | PDOC ---
PROGRESS NOTES Subjective Subjective labs reviewed. diarrhea this morning but none since 3 PM yesterday prior to that. still with intermittent abdominal pain. says his aunt was diagnosed with celiac disease with similar symptoms and nurse will contact dr. thomason with that information. Objective Objective Vital Signs Date Time Temp Pulse Resp B/P (MAP) Pulse Ox O2 Delivery O2 Flow Rate FiO2 08/08/19 07:54 97.9 64 18 129/73 (91) 95 Room Air 97.9 Intake and Output 08/08/19 07:00 Intake Total 1760 ml Balance 1760 ml Intake Oral 240 ml IV Total 560 ml Other 960 ml # Voids 8 # Bowel Movements 4 Physical Exam Abdomen: Normal bowel sounds, Soft, Other (epigastric tenderness without guarding) Heart: Regular rate, Normal S1, Normal S2 Extremities: No edema General: Alert HEENT: Atraumatic Lungs: Clear to auscultation Neuro: Normal speech Psych/Mental Status: Mental status NL Skin: No rashes Assessment Assessment abdominal pain diarrhea better stool culture and c. diff negative hx cholecystectomy asthma Plan Plan of Care advance to full liquids continue cholestyramine acute abdominal series today labs tomorrow await GI input about family history of celiac disease decrease iv fluids anticipate dismissal tomorrow if better Comment Review of Relevant I have reviewed the following items dimitri (where applicable) has been applied. Labs Laboratory Tests Test 08/08/19 04:50 White Blood Count 6.4 x10^3/uL (4.0-11.0) Red Blood Count 4.66 x10^6/uL (4.30-5.70) Hemoglobin 14.6 g/dL (13.0-17.5) Hematocrit 41.4 % (39.0-53.0) Mean Corpuscular Volume 89 fL (79-100) Mean Corpuscular Hemoglobin 31 pg (25-35) Mean Corpuscular Hemoglobin Concent 35 g/dL (31-37) Red Cell Distribution Width 13.0 % (11.5-14.5) Platelet Count 240 x10^3/uL (140-400) Neutrophils (%) (Auto) 58 % (31-73) Lymphocytes (%) (Auto) 29 % (24-48) Monocytes (%) (Auto) 10 % (0-9) Eosinophils (%) (Auto) 3 % (0-3) Basophils (%) (Auto) 0 % (0-3) Neutrophils # (Auto) 3.7 x10^3/uL (1.8-7.7) Lymphocytes # (Auto) 1.8 x10^3/uL (1.0-4.8) Monocytes # (Auto) 0.6 x10^3/uL (0.0-1.1) Eosinophils # (Auto) 0.2 x10^3/uL (0.0-0.7) Basophils # (Auto) 0.0 x10^3/uL (0.0-0.2) Sodium Level 141 mmol/L (136-145) Potassium Level 4.2 mmol/L (3.5-5.1) Chloride Level 105 mmol/L (98-107) Carbon Dioxide Level 27 mmol/L (21-32) Anion Gap 9 (6-14) Blood Urea Nitrogen 8 mg/dL (8-26) Creatinine 1.1 mg/dL (0.7-1.3) Estimated GFR (Cockcroft-Gault) 70.6 Glucose Level 97 mg/dL (70-99) Calcium Level 8.8 mg/dL (8.5-10.1) Magnesium Level 2.0 mg/dL (1.8-2.4) Laboratory Tests Test 08/08/19 04:50 White Blood Count 6.4 x10^3/uL (4.0-11.0) Red Blood Count 4.66 x10^6/uL (4.30-5.70) Hemoglobin 14.6 g/dL (13.0-17.5) Hematocrit 41.4 % (39.0-53.0) Mean Corpuscular Volume 89 fL (79-100) Mean Corpuscular Hemoglobin 31 pg (25-35) Mean Corpuscular Hemoglobin Concent 35 g/dL (31-37) Red Cell Distribution Width 13.0 % (11.5-14.5) Platelet Count 240 x10^3/uL (140-400) Neutrophils (%) (Auto) 58 % (31-73) Lymphocytes (%) (Auto) 29 % (24-48) Monocytes (%) (Auto) 10 % (0-9) Eosinophils (%) (Auto) 3 % (0-3) Basophils (%) (Auto) 0 % (0-3) Neutrophils # (Auto) 3.7 x10^3/uL (1.8-7.7) Lymphocytes # (Auto) 1.8 x10^3/uL (1.0-4.8) Monocytes # (Auto) 0.6 x10^3/uL (0.0-1.1) Eosinophils # (Auto) 0.2 x10^3/uL (0.0-0.7) Basophils # (Auto) 0.0 x10^3/uL (0.0-0.2) Sodium Level 141 mmol/L (136-145) Potassium Level 4.2 mmol/L (3.5-5.1) Chloride Level 105 mmol/L (98-107) Carbon Dioxide Level 27 mmol/L (21-32) Anion Gap 9 (6-14) Blood Urea Nitrogen 8 mg/dL (8-26) Creatinine 1.1 mg/dL (0.7-1.3) Estimated GFR (Cockcroft-Gault) 70.6 Glucose Level 97 mg/dL (70-99) Calcium Level 8.8 mg/dL (8.5-10.1) Magnesium Level 2.0 mg/dL (1.8-2.4) Medications Current Medications Potassium Chloride/Dextrose/ Sod Cl 1,000 ml @ 80 mls/hr [id number] IV Last administered on 08/08/19at 09:41; Start 08/03/19 at 14:00 Ondansetron HCl (Zofran) 4 mg PRN Q6HRS PRN IVP NAUSEA/VOMITING Last administered on 08/05/19at 07:14; Start 08/03/19 at 14:00 Acetaminophen (Tylenol) 650 mg PRN Q6HRS PRN PO MILD PAIN / TEMP > 100.3'F Last administered on 08/03/19at 14:59; Start 08/03/19 at 14:00 Morphine Sulfate (Morphine Sulfate) 1 mg PRN Q4HRS PRN IV MODERATE TO SEVERE PAIN Last administered on 08/04/19at 19:28; Start 08/03/19 at 14:00 Albuterol Sulfate (Ventolin Neb Soln) 2.5 mg PRN Q4HRS PRN NEB SHORTNESS OF BREATH; Start 08/03/19 at 14:15 Pantoprazole Sodium (PROTONIX VIAL for IV PUSH) 40 mg DAILYAC IVP Last administered on 08/08/19at 09:39; Start 08/03/19 at 16:30 Multi-Ingredient Mouthwash/Gargle (Gi Cocktail) 20 ml PRN QID PRN PO epigastric pain Last administered on 08/04/19at 19:28; Start 08/04/19 at 10:30 Magnesium Sulfate 50 ml @ 25 mls/hr 1X ONCE IV Last administered on 08/04/19at 14:44; Start 08/04/19 at 12:00; Stop 08/04/19 at 13:59; Status DC Cholestyramine Resin (Questran Light) 4 gm BID PO Last administered on 08/08/19at 09:38; Start 08/07/19 at 21:00 Active Scripts Active Reported Claritin-D 24 Hour Tablet (Loratadine/Pseudoephedrine) 1 Each Tab.er.24h 1 Tab PO PRN DAILY PRN 10 Days Proair Hfa (Albuterol Sulfate) 8.5 Gm Hfa.aer.ad 2 Puff IH PRN Q4-6HRS PRN 21 Days Vitals/I & O Vital Sign - Last 24 Hours 08/07/19 08/07/19 08/07/19 08/07/19 11:00 15:00 19:00 20:00 Temp 98.2 98.0 98.0 98.2 98.0 98.0 Pulse 55 53 56 Resp 18 B/P (MAP) 112/77 (89) 112/69 (83) 119/70 (86) Pulse Ox 95 96 90 O2 Delivery Room Air Room Air Room Air 08/07/19 08/08/19 08/08/19 23:00 03:13 07:54 Temp 98.1 97.9 97.9 98.1 97.9 97.9 Pulse 57 53 64 Resp 18 20 18 B/P (MAP) 110/53 (72) 114/72 (86) 129/73 (91) Pulse Ox 95 97 95 O2 Delivery Room Air Room Air Room Air Intake and Output 08/07/19 08/07/19 08/08/19 15:00 23:00 07:00 Intake Total 1760 ml Balance 1760 ml SKY MCGHEE MD Aug 08, 2019 10:15
[2019-08-08 11:09] VITALS: BP 128/76
--- NOTE | 2019-08-08 12:21 | PDOC ---
Subjective: Subjective: Diarrhea over the weekend - less today - small watery stool this morning x 1. Tolerating full liquids - no vomiting since admission. Less abdominal pain but has upper "pressure." Aunt had celiac disease and had similar symptoms before diagnosis. Objective: Objective: SBS ordered. Getting cholestyramine. Reviewed chart - concern for celiac and/or IBD. Vital Signs: Vital Signs Date Time Temp Pulse Resp B/P (MAP) Pulse Ox O2 Delivery O2 Flow Rate FiO2 08/08/19 11:09 98.1 57 18 128/76 (93) 98 Room Air 98.1 Labs: Laboratory Tests Test 08/08/19 04:50 White Blood Count 6.4 x10^3/uL Red Blood Count 4.66 x10^6/uL Hemoglobin 14.6 g/dL Hematocrit 41.4 % Mean Corpuscular Volume 89 fL Mean Corpuscular Hemoglobin 31 pg Mean Corpuscular Hemoglobin Concent 35 g/dL Red Cell Distribution Width 13.0 % Platelet Count 240 x10^3/uL Neutrophils (%) (Auto) 58 % Lymphocytes (%) (Auto) 29 % Monocytes (%) (Auto) 10 % Eosinophils (%) (Auto) 3 % Basophils (%) (Auto) 0 % Neutrophils # (Auto) 3.7 x10^3/uL Lymphocytes # (Auto) 1.8 x10^3/uL Monocytes # (Auto) 0.6 x10^3/uL Eosinophils # (Auto) 0.2 x10^3/uL Basophils # (Auto) 0.0 x10^3/uL Sodium Level 141 mmol/L Potassium Level 4.2 mmol/L Chloride Level 105 mmol/L Carbon Dioxide Level 27 mmol/L Anion Gap 9 Blood Urea Nitrogen 8 mg/dL Creatinine 1.1 mg/dL Estimated GFR (Cockcroft-Gault) 70.6 Glucose Level 97 mg/dL Calcium Level 8.8 mg/dL Magnesium Level 2.0 mg/dL Imaging: [facility] 08/05 Impression: 1. There are persistent gas dilated loops of small bowel although decreased. PE: GEN: NAD - just finished lunch LUNGS: CTAB HEART: RRR ABD: NABS, stable distention, less tender epigastrium/LUQ NEURO/PSYCH: A & O 3 A/P: Abd pain, diarrhea - better FH celiac disease - no h/o anemia, no h/o chronc -- SBS ordered - suspect will be done tomorrow since he has eaten today. No h/o chronic diarrhea, anemia, or weight loww; however, will check CRP, t- transglutaminase. Justicifation of Admission Dx: Justifications for Admission: Justification of Admission Dx: Yes YADI MASTERS Aug 08, 2019 12:21
[2019-08-08 15:08] VITALS: BP 135/80
--- NOTE | 2019-08-08 16:12 | RAD ---
Acute abdominal series to include an AP chest radiograph 08/08/2019 Clinical History: Abdominal pain. Small bowel obstruction. An AP portable digital radiograph of the chest was obtained. Supine and erect AP digital radiographs of the abdomen/pelvis were obtained. Comparison study is dated 08/06/2019. The cardiac and mediastinal silhouettes are within normal limits in size and configuration. Subsegmental atelectasis is seen involving the left lower lobe. No area of consolidation is seen. No pleural effusion or pneumothorax is noted. Surgical clips are seen within the right upper quadrant abdomen consistent with a cholecystectomy. Air distention of small bowel loops in the previous study has improved. Air is seen throughout the colon. There is no evidence of free air. No radiopaque calculus is seen. The osseous structures are unchanged. Impression: Interval improvement in the air distention of the small bowel loops. Electronically signed by: Dion Núñez MD (08/08/2019 4:09 PM) [id number]
[2019-08-08 19:00] VITALS: BP 126/65
[2019-08-08 23:00] VITALS: BP 121/69
[2019-08-09] MEDS: POTASSIUM CL 20MEQ D5-0.45NACL 1,000 ML IV SCH (02:26)
[2019-08-09 03:00] VITALS: BP 110/62
[2019-08-09 05:48] LABS: BASO % 0 % (0-3); EOS # 0.2 x10^3/uL (0.0-0.7); EOS % 3 % (0-3); HEMOGLOBIN 14.6 g/dL (13.0-17.5); LYMPH # 2.3 x10^3/uL (1.0-4.8); LYMPH % 29 % (24-48); MEAN CORPUSCULAR HEMOGLOBIN 31 pg (25-35); MEAN CORPUSCULAR HGB CONC 35 g/dL (31-37); MEAN CORPUSCULAR VOLUME 89 fL (79-100); MONO # 0.6 x10^3/uL (0.0-1.1); MONO % 8 % (0-9); NEUT # 4.5 x10^3/uL (1.8-7.7); NEUT % 59 % (31-73); PLATELET COUNT 264 x10^3/uL (140-400); RED CELL DISTRIBUTION WIDTH 12.8 % (11.5-14.5); WHITE BLOOD COUNT 7.7 x10^3/uL (4.0-11.0)
[2019-08-09 06:16] LABS: CALCIUM 9.1 mg/dL (8.5-10.1); CREATININE 1.1 mg/dL (0.7-1.3); GFR 70.6; POTASSIUM 4.1 mmol/L (3.5-5.1)
[2019-08-09] MEDS: PANTOPRAZOLE IV PUSH 40 MG VIAL. IVP SCH (06:35)
[2019-08-09 07:00] VITALS: BP 117/72
[2019-08-09] MEDS ORDERED: IOHEXOL 300 MG/ML 100ML VIAL. PO ONE ×2 (08:30→10:00)
[2019-08-09] MEDS ORDERED: CONTRAST GIVEN. MC PRN ×2 (08:30→10:15)
[2019-08-09] MEDS: CHOLESTYRAMINE/ASPARTAME 4 GM PACKET PO SCH ×2 (09:00→21:18)
--- NOTE | 2019-08-09 10:45 | NUR ---
SW following. Discussed with RN, pt having the small bowel series today due to eating yesterday. Physician note states possible discharge later today. SW will continue to follow.
[2019-08-09 11:00] VITALS: BP 121/81
--- NOTE | 2019-08-09 11:06 | PDOC ---
Objective: Objective: 4 stools charted yesterday. Vital Signs: Vital Signs Date Time Temp Pulse Resp B/P (MAP) Pulse Ox O2 Delivery O2 Flow Rate FiO2 08/09/19 08:00 Room Air 08/09/19 07:00 97.7 60 16 117/72 (87) 96 97.7 Labs: Laboratory Tests Test 08/09/19 04:50 White Blood Count 7.7 x10^3/uL Red Blood Count 4.70 x10^6/uL Hemoglobin 14.6 g/dL Hematocrit 42.0 % Mean Corpuscular Volume 89 fL Mean Corpuscular Hemoglobin 31 pg Mean Corpuscular Hemoglobin Concent 35 g/dL Red Cell Distribution Width 12.8 % Platelet Count 264 x10^3/uL Neutrophils (%) (Auto) 59 % Lymphocytes (%) (Auto) 29 % Monocytes (%) (Auto) 8 % Eosinophils (%) (Auto) 3 % Basophils (%) (Auto) 0 % Neutrophils # (Auto) 4.5 x10^3/uL Lymphocytes # (Auto) 2.3 x10^3/uL Monocytes # (Auto) 0.6 x10^3/uL Eosinophils # (Auto) 0.2 x10^3/uL Basophils # (Auto) 0.0 x10^3/uL Sodium Level 139 mmol/L Potassium Level 4.1 mmol/L Chloride Level 104 mmol/L Carbon Dioxide Level 28 mmol/L Anion Gap 7 Blood Urea Nitrogen 9 mg/dL Creatinine 1.1 mg/dL Estimated GFR (Cockcroft-Gault) 70.6 Glucose Level 88 mg/dL Calcium Level 9.1 mg/dL Imaging: SBS 08/08 pending PE: out of room A/P: Abd pain, diarrhea - CRP normal, normal colonoscopy recently -- Out for SBS, will follow-up later. Justicifation of Admission Dx: Justifications for Admission: Justification of Admission Dx: Yes YADI MASTERS Aug 09, 2019 11:06
--- NOTE | 2019-08-09 11:08 | PDOC ---
SURGICAL PROGRESS NOTE Subjective down for SBFT will FU with results Vital Signs Vital Signs Date Time Temp Pulse Resp B/P (MAP) Pulse Ox O2 Delivery O2 Flow Rate FiO2 08/09/19 08:00 Room Air 08/09/19 07:00 97.7 60 16 117/72 (87) 96 97.7 I&O Intake and Output 08/09/19 07:00 Intake Total 400 ml Balance 400 ml Intake Oral 400 ml # Voids 4 Labs Laboratory Tests Test 08/08/19 04:50 08/09/19 04:50 White Blood Count 6.4 x10^3/uL (4.0-11.0) 7.7 x10^3/uL (4.0-11.0) Red Blood Count 4.66 x10^6/uL (4.30-5.70) 4.70 x10^6/uL (4.30-5.70) Hemoglobin 14.6 g/dL (13.0-17.5) 14.6 g/dL (13.0-17.5) Hematocrit 41.4 % (39.0-53.0) 42.0 % (39.0-53.0) Mean Corpuscular Volume 89 fL (79-100) 89 fL (79-100) Mean Corpuscular Hemoglobin 31 pg (25-35) 31 pg (25-35) Mean Corpuscular Hemoglobin Concent 35 g/dL (31-37) 35 g/dL (31-37) Red Cell Distribution Width 13.0 % (11.5-14.5) 12.8 % (11.5-14.5) Platelet Count 240 x10^3/uL (140-400) 264 x10^3/uL (140-400) Neutrophils (%) (Auto) 58 % (31-73) 59 % (31-73) Lymphocytes (%) (Auto) 29 % (24-48) 29 % (24-48) Monocytes (%) (Auto) 10 % (0-9) 8 % (0-9) Eosinophils (%) (Auto) 3 % (0-3) 3 % (0-3) Basophils (%) (Auto) 0 % (0-3) 0 % (0-3) Neutrophils # (Auto) 3.7 x10^3/uL (1.8-7.7) 4.5 x10^3/uL (1.8-7.7) Lymphocytes # (Auto) 1.8 x10^3/uL (1.0-4.8) 2.3 x10^3/uL (1.0-4.8) Monocytes # (Auto) 0.6 x10^3/uL (0.0-1.1) 0.6 x10^3/uL (0.0-1.1) Eosinophils # (Auto) 0.2 x10^3/uL (0.0-0.7) 0.2 x10^3/uL (0.0-0.7) Basophils # (Auto) 0.0 x10^3/uL (0.0-0.2) 0.0 x10^3/uL (0.0-0.2) Sodium Level 141 mmol/L (136-145) 139 mmol/L (136-145) Potassium Level 4.2 mmol/L (3.5-5.1) 4.1 mmol/L (3.5-5.1) Chloride Level 105 mmol/L (98-107) 104 mmol/L (98-107) Carbon Dioxide Level 27 mmol/L (21-32) 28 mmol/L (21-32) Anion Gap 9 (6-14) 7 (6-14) Blood Urea Nitrogen 8 mg/dL (8-26) 9 mg/dL (8-26) Creatinine 1.1 mg/dL (0.7-1.3) 1.1 mg/dL (0.7-1.3) Estimated GFR (Cockcroft-Gault) 70.6 70.6 Glucose Level 97 mg/dL (70-99) 88 mg/dL (70-99) Calcium Level 8.8 mg/dL (8.5-10.1) 9.1 mg/dL (8.5-10.1) Magnesium Level 2.0 mg/dL (1.8-2.4) C-Reactive Protein, Quantitative < 0.5 mg/L (0-3.3) Laboratory Tests Test 08/09/19 04:50 White Blood Count 7.7 x10^3/uL (4.0-11.0) Red Blood Count 4.70 x10^6/uL (4.30-5.70) Hemoglobin 14.6 g/dL (13.0-17.5) Hematocrit 42.0 % (39.0-53.0) Mean Corpuscular Volume 89 fL (79-100) Mean Corpuscular Hemoglobin 31 pg (25-35) Mean Corpuscular Hemoglobin Concent 35 g/dL (31-37) Red Cell Distribution Width 12.8 % (11.5-14.5) Platelet Count 264 x10^3/uL (140-400) Neutrophils (%) (Auto) 59 % (31-73) Lymphocytes (%) (Auto) 29 % (24-48) Monocytes (%) (Auto) 8 % (0-9) Eosinophils (%) (Auto) 3 % (0-3) Basophils (%) (Auto) 0 % (0-3) Neutrophils # (Auto) 4.5 x10^3/uL (1.8-7.7) Lymphocytes # (Auto) 2.3 x10^3/uL (1.0-4.8) Monocytes # (Auto) 0.6 x10^3/uL (0.0-1.1) Eosinophils # (Auto) 0.2 x10^3/uL (0.0-0.7) Basophils # (Auto) 0.0 x10^3/uL (0.0-0.2) Sodium Level 139 mmol/L (136-145) Potassium Level 4.1 mmol/L (3.5-5.1) Chloride Level 104 mmol/L (98-107) Carbon Dioxide Level 28 mmol/L (21-32) Anion Gap 7 (6-14) Blood Urea Nitrogen 9 mg/dL (8-26) Creatinine 1.1 mg/dL (0.7-1.3) Estimated GFR (Cockcroft-Gault) 70.6 Glucose Level 88 mg/dL (70-99) Calcium Level 9.1 mg/dL (8.5-10.1) Justicifation of Admission Dx: Justifications for Admission: Justification of Admission Dx: Yes JERARDO ROSEN APRN Aug 09, 2019 11:08
[2019-08-09 15:00] VITALS: BP 136/109
--- NOTE | 2019-08-09 15:30 | PDOC ---
PROGRESS NOTES Subjective Subjective less abdominal pain. feels better. has diarrhea this morning but is less.lab reviewed. Objective Objective Vital Signs Date Time Temp Pulse Resp B/P (MAP) Pulse Ox O2 Delivery O2 Flow Rate FiO2 08/09/19 11:00 96.8 70 16 121/81 (94) 97 Room Air 96.8 Intake and Output 08/09/19 07:00 Intake Total 400 ml Balance 400 ml Intake Oral 400 ml # Voids 4 Physical Exam Abdomen: Soft, Other (mild epigsastric tenderness) Heart: Regular rate, Normal S1, Normal S2 Extremities: No edema General: Alert HEENT: Atraumatic Lungs: Clear to auscultation Neuro: Normal speech Psych/Mental Status: Mental status NL Skin: No rashes Assessment Assessment abdominal pain diarrhea better stool culture and c. diff negative hx cholecystectomy asthma better Plan Plan of Care small bowel follow thru today advance diet to soft solids decrease iv fluids anticipate dismissal tomorrow Comment Review of Relevant I have reviewed the following items dimitri (where applicable) has been applied. Labs Laboratory Tests Test 08/08/19 04:50 08/09/19 04:50 White Blood Count 6.4 x10^3/uL (4.0-11.0) 7.7 x10^3/uL (4.0-11.0) Red Blood Count 4.66 x10^6/uL (4.30-5.70) 4.70 x10^6/uL (4.30-5.70) Hemoglobin 14.6 g/dL (13.0-17.5) 14.6 g/dL (13.0-17.5) Hematocrit 41.4 % (39.0-53.0) 42.0 % (39.0-53.0) Mean Corpuscular Volume 89 fL (79-100) 89 fL (79-100) Mean Corpuscular Hemoglobin 31 pg (25-35) 31 pg (25-35) Mean Corpuscular Hemoglobin Concent 35 g/dL (31-37) 35 g/dL (31-37) Red Cell Distribution Width 13.0 % (11.5-14.5) 12.8 % (11.5-14.5) Platelet Count 240 x10^3/uL (140-400) 264 x10^3/uL (140-400) Neutrophils (%) (Auto) 58 % (31-73) 59 % (31-73) Lymphocytes (%) (Auto) 29 % (24-48) 29 % (24-48) Monocytes (%) (Auto) 10 % (0-9) 8 % (0-9) Eosinophils (%) (Auto) 3 % (0-3) 3 % (0-3) Basophils (%) (Auto) 0 % (0-3) 0 % (0-3) Neutrophils # (Auto) 3.7 x10^3/uL (1.8-7.7) 4.5 x10^3/uL (1.8-7.7) Lymphocytes # (Auto) 1.8 x10^3/uL (1.0-4.8) 2.3 x10^3/uL (1.0-4.8) Monocytes # (Auto) 0.6 x10^3/uL (0.0-1.1) 0.6 x10^3/uL (0.0-1.1) Eosinophils # (Auto) 0.2 x10^3/uL (0.0-0.7) 0.2 x10^3/uL (0.0-0.7) Basophils # (Auto) 0.0 x10^3/uL (0.0-0.2) 0.0 x10^3/uL (0.0-0.2) Sodium Level 141 mmol/L (136-145) 139 mmol/L (136-145) Potassium Level 4.2 mmol/L (3.5-5.1) 4.1 mmol/L (3.5-5.1) Chloride Level 105 mmol/L (98-107) 104 mmol/L (98-107) Carbon Dioxide Level 27 mmol/L (21-32) 28 mmol/L (21-32) Anion Gap 9 (6-14) 7 (6-14) Blood Urea Nitrogen 8 mg/dL (8-26) 9 mg/dL (8-26) Creatinine 1.1 mg/dL (0.7-1.3) 1.1 mg/dL (0.7-1.3) Estimated GFR (Cockcroft-Gault) 70.6 70.6 Glucose Level 97 mg/dL (70-99) 88 mg/dL (70-99) Calcium Level 8.8 mg/dL (8.5-10.1) 9.1 mg/dL (8.5-10.1) Magnesium Level 2.0 mg/dL (1.8-2.4) C-Reactive Protein, Quantitative < 0.5 mg/L (0-3.3) Laboratory Tests Test 08/09/19 04:50 White Blood Count 7.7 x10^3/uL (4.0-11.0) Red Blood Count 4.70 x10^6/uL (4.30-5.70) Hemoglobin 14.6 g/dL (13.0-17.5) Hematocrit 42.0 % (39.0-53.0) Mean Corpuscular Volume 89 fL (79-100) Mean Corpuscular Hemoglobin 31 pg (25-35) Mean Corpuscular Hemoglobin Concent 35 g/dL (31-37) Red Cell Distribution Width 12.8 % (11.5-14.5) Platelet Count 264 x10^3/uL (140-400) Neutrophils (%) (Auto) 59 % (31-73) Lymphocytes (%) (Auto) 29 % (24-48) Monocytes (%) (Auto) 8 % (0-9) Eosinophils (%) (Auto) 3 % (0-3) Basophils (%) (Auto) 0 % (0-3) Neutrophils # (Auto) 4.5 x10^3/uL (1.8-7.7) Lymphocytes # (Auto) 2.3 x10^3/uL (1.0-4.8) Monocytes # (Auto) 0.6 x10^3/uL (0.0-1.1) Eosinophils # (Auto) 0.2 x10^3/uL (0.0-0.7) Basophils # (Auto) 0.0 x10^3/uL (0.0-0.2) Sodium Level 139 mmol/L (136-145) Potassium Level 4.1 mmol/L (3.5-5.1) Chloride Level 104 mmol/L (98-107) Carbon Dioxide Level 28 mmol/L (21-32) Anion Gap 7 (6-14) Blood Urea Nitrogen 9 mg/dL (8-26) Creatinine 1.1 mg/dL (0.7-1.3) Estimated GFR (Cockcroft-Gault) 70.6 Glucose Level 88 mg/dL (70-99) Calcium Level 9.1 mg/dL (8.5-10.1) Medications Current Medications Potassium Chloride/Dextrose/ Sod Cl 1,000 ml @ 60 mls/hr [id number] IV Last administered on 08/09/19 02:26; Start 08/03/19 at 14:00 Ondansetron HCl (Zofran) 4 mg PRN Q6HRS PRN IVP NAUSEA/VOMITING Last administered on 08/05/19at 07:14; Start 08/03/19 at 14:00 Acetaminophen (Tylenol) 650 mg PRN Q6HRS PRN PO MILD PAIN / TEMP > 100.3'F Last administered on 08/03/19 14:59; Start 08/03/19 at 14:00 Morphine Sulfate (Morphine Sulfate) 1 mg PRN Q4HRS PRN IV MODERATE TO SEVERE PAIN Last administered on 08/04/19at 19:28; Start 08/03/19 at 14:00 Albuterol Sulfate (Ventolin Neb Soln) 2.5 mg PRN Q4HRS PRN NEB SHORTNESS OF BREATH; Start 08/03/19 at 14:15 Pantoprazole Sodium (PROTONIX VIAL for IV PUSH) 40 mg DAILYAC IVP Last administered on 08/09/19at 06:35; Start 08/03/19 at 16:30 Multi-Ingredient Mouthwash/Gargle (Gi Cocktail) 20 ml PRN QID PRN PO epigastric pain Last administered on 08/04/19at 19:28; Start 08/04/19 at 10:30 Magnesium Sulfate 50 ml @ 25 mls/hr 1X ONCE IV Last administered on 08/04/19at 14:44; Start 08/04/19 at 12:00; Stop 08/04/19 at 13:59; Status DC Cholestyramine Resin (Questran Light) 4 gm BID PO Last administered on 08/08/19at 21:27; Start 08/07/19 at 21:00 Acetaminophen/ Hydrocodone Bitart (Lortab 5/325) 1 tab PRN Q4HRS PRN PO MODERATE PAIN; Start 08/08/19 at 10:15 Iohexol (Omnipaque 300 Mg/ml) 300 ml 1X ONCE PO Last administered on 08/09/19at 09:20; Start 08/09/19 at 08:30; Stop 08/09/19 at 08:31; Status DC Info (CONTRAST GIVEN -- Rx MONITORING) 1 each PRN DAILY PRN MC SEE COMMENTS; Start 08/09/19 at 08:30; Stop 08/11/19 at 08:29 Iohexol (Omnipaque 300 Mg/ml) 100 ml 1X ONCE PO ; Start 08/09/19 at 10:00; Stop 08/09/19 at 10:01; Status DC Info (CONTRAST GIVEN -- Rx MONITORING) 1 each PRN DAILY PRN MC SEE COMMENTS; Start 08/09/19 at 10:15; Stop 08/11/19 at 10:14 Active Scripts Active Reported Claritin-D 24 Hour Tablet (Loratadine/Pseudoephedrine) 1 Each Tab.er.24h 1 Tab PO PRN DAILY PRN 10 Days Proair Hfa (Albuterol Sulfate) 8.5 Gm Hfa.aer.ad 2 Puff IH PRN Q4-6HRS PRN 21 Days Vitals/I & O Vital Sign - Last 24 Hours 08/08/19 08/08/19 08/08/19 08/09/19 19:00 20:00 23:00 03:00 Temp 97.8 98.0 98.0 97.8 98.0 98.0 Pulse 59 58 58 Resp 18 18 18 B/P (MAP) 126/65 (85) 121/69 (86) 110/62 (78) Pulse Ox 96 94 94 O2 Delivery Room Air Room Air Room Air Room Air 08/09/19 08/09/19 08/09/19 07:00 08:00 11:00 Temp 97.7 96.8 97.7 96.8 Pulse 60 70 Resp 16 16 B/P (MAP) 117/72 (87) 121/81 (94) Pulse Ox 96 97 O2 Delivery Room Air Room Air Room Air Intake and Output 08/08/19 08/08/19 08/09/19 15:00 23:00 07:00 Intake Total 200 ml 200 ml Balance 200 ml 200 ml SKY MCGHEE MD Aug 09, 2019 15:30
[2019-08-09 19:00] VITALS: BP 133/87
[2019-08-09 23:00] VITALS: BP 105/56
[2019-08-10] MEDS: POTASSIUM CL 20MEQ D5-0.45NACL 1,000 ML IV SCH (01:09)
[2019-08-10 03:00] VITALS: BP 117/66
[2019-08-10 07:00] VITALS: BP 113/73
[2019-08-10] MEDS ORDERED: PANTOPRAZOLE 40 MG TABLET.DR. PO SCH (07:30)
--- NOTE | 2019-08-10 08:15 | RAD ---
EXAM: SMALL BOWEL FOLLOW-THROUGH. HISTORY: Abdominal pain, diarrhea.. COMPARISON: Acute abdominal series of 08/06/2019. FINDINGS: A pigment mixer image was obtained. Water-soluble contrast material was administered orally and followed in its course through the stomach, small bowel and proximal colon with fluoroscopy and plain radiographs. 4 fluoroscopic images were obtained. Fluoroscopy time 1.2 minutes. The pigment mixer image demonstrates a single dilated loop of small bowel in the left upper quadrant abdomen and a second single dilated loop of small bowel in the right mid abdomen but otherwise relative paucity of bowel gas. No retained radiopaque foreign body or contrast material. After oral contrast administration, no distended small bowel loops persisted. No strictures are seen. The small bowel fold pattern is unremarkable. Transit time was normal at 60 minutes (normal <2 hours.) IMPRESSION: 1. Unremarkable small bowel series. Electronically signed by: Jose Martin Coon MD (08/10/2019 8:12 AM) [id number]
[2019-08-10] MEDS: CHOLESTYRAMINE/ASPARTAME 4 GM PACKET PO SCH (08:16)
--- NOTE | 2019-08-10 10:38 | NUR ---
SW following. Discussed with RN, chart states possible discharge home today. Pt now on GI soft diet. SW will continue to follow should any discharge planning needs arise.
[2019-08-10 11:00] VITALS: BP 122/63
--- NOTE | 2019-08-10 11:20 | PDOC ---
Subjective: Subjective: Tolerating diet. Occasionally "poking" pain in LUQ/left side - not too bothersome. Stooled a bunch yesterday, none today. Wishes he knew what caused all this. Feels well enough to go home. Objective: Vital Signs: Vital Signs Date Time Temp Pulse Resp B/P (MAP) Pulse Ox O2 Delivery O2 Flow Rate FiO2 08/10/19 11:00 98.3 51 18 122/63 (82) 96 Room Air 98.3 Imaging: SBS 08/08 IMPRESSION: 1. Unremarkable small bowel series. PE: GEN: NAD LUNGS: CTAB HEART: RRR ABD: NABS, S/ND/NT NEURO/PSYCH: A & O 3 A/P: Abd pain, diarrhea - improving -- DC per primary. Might be reasonable to continue PPI for awhile as outpt. Can follow-up re: celiac labs. Justicifation of Admission Dx: Justifications for Admission: Justification of Admission Dx: Yes YADI MASTERS Aug 10, 2019 11:20
--- NOTE | 2019-08-10 13:14 | PDOC ---
PROGRESS NOTES Subjective Subjective feels better. no further BM since yesterday. occasional stabbing brief pain left side laterally. eating solid food. SBFT normal. lab reviewed. Objective Objective Vital Signs Date Time Temp Pulse Resp B/P (MAP) Pulse Ox O2 Delivery O2 Flow Rate FiO2 08/10/19 11:00 98.3 51 18 122/63 (82) 96 Room Air 98.3 Intake and Output 08/10/19 07:00 Intake Total 400 ml Balance 400 ml Intake Oral 400 ml # Voids 6 Physical Exam Abdomen: Soft, No tenderness Heart: Regular rate, Normal S1, Normal S2 Extremities: No edema General: Alert HEENT: Atraumatic Lungs: Clear to auscultation Neuro: Normal speech Psych/Mental Status: Mental status NL Skin: No rashes Assessment Assessment abdominal pain. improved diarrhea improved stool culture and c. diff negative hx cholecystectomy asthma Plan Plan of Care dismiss today Comment Review of Relevant I have reviewed the following items dimitri (where applicable) has been applied. Labs Laboratory Tests Test 08/09/19 04:50 White Blood Count 7.7 x10^3/uL (4.0-11.0) Red Blood Count 4.70 x10^6/uL (4.30-5.70) Hemoglobin 14.6 g/dL (13.0-17.5) Hematocrit 42.0 % (39.0-53.0) Mean Corpuscular Volume 89 fL (79-100) Mean Corpuscular Hemoglobin 31 pg (25-35) Mean Corpuscular Hemoglobin Concent 35 g/dL (31-37) Red Cell Distribution Width 12.8 % (11.5-14.5) Platelet Count 264 x10^3/uL (140-400) Neutrophils (%) (Auto) 59 % (31-73) Lymphocytes (%) (Auto) 29 % (24-48) Monocytes (%) (Auto) 8 % (0-9) Eosinophils (%) (Auto) 3 % (0-3) Basophils (%) (Auto) 0 % (0-3) Neutrophils # (Auto) 4.5 x10^3/uL (1.8-7.7) Lymphocytes # (Auto) 2.3 x10^3/uL (1.0-4.8) Monocytes # (Auto) 0.6 x10^3/uL (0.0-1.1) Eosinophils # (Auto) 0.2 x10^3/uL (0.0-0.7) Basophils # (Auto) 0.0 x10^3/uL (0.0-0.2) Sodium Level 139 mmol/L (136-145) Potassium Level 4.1 mmol/L (3.5-5.1) Chloride Level 104 mmol/L (98-107) Carbon Dioxide Level 28 mmol/L (21-32) Anion Gap 7 (6-14) Blood Urea Nitrogen 9 mg/dL (8-26) Creatinine 1.1 mg/dL (0.7-1.3) Estimated GFR (Cockcroft-Gault) 70.6 Glucose Level 88 mg/dL (70-99) Calcium Level 9.1 mg/dL (8.5-10.1) Medications Current Medications Potassium Chloride/Dextrose/ Sod Cl 1,000 ml @ 40 mls/hr Q24H IV Last administered on 08/10/19 01:09; Start 08/03/19 at 14:00 Ondansetron HCl (Zofran) 4 mg PRN Q6HRS PRN IVP NAUSEA/VOMITING Last administered on 08/05/19at 07:14; Start 08/03/19 at 14:00 Acetaminophen (Tylenol) 650 mg PRN Q6HRS PRN PO MILD PAIN / TEMP > 100.3'F Last administered on 08/03/19at 14:59; Start 08/03/19 at 14:00 Morphine Sulfate (Morphine Sulfate) 1 mg PRN Q4HRS PRN IV MODERATE TO SEVERE PAIN Last administered on 08/04/19at 19:28; Start 08/03/19 at 14:00 Albuterol Sulfate (Ventolin Neb Soln) 2.5 mg PRN Q4HRS PRN NEB SHORTNESS OF BREATH; Start 08/03/19 at 14:15 Pantoprazole Sodium (PROTONIX VIAL for IV PUSH) 40 mg DAILYAC IVP Last admin istered on 08/09/19at 06:35; Start 08/03/19 at 16:30; Stop 08/09/19 at 15:32; Status DC Multi-Ingredient Mouthwash/Gargle (Gi Cocktail) 20 ml PRN QID PRN PO epigastric pain Last administered on 08/04/19at 19:28; Start 08/04/19 at 10:30 Magnesium Sulfate 50 ml @ 25 mls/hr 1X ONCE IV Last administered on 08/04/19at 14:44; Start 08/04/19 at 12:00; Stop 08/04/19 at 13:59; Status DC Cholestyramine Resin (Questran Light) 4 gm BID PO Last administered on 08/10/19at 08:16; Start 08/07/19 at 21:00 Acetaminophen/ Hydrocodone Bitart (Lortab 5/325) 1 tab PRN Q4HRS PRN PO MODERATE PAIN; Start 08/08/19 at 10:15 Iohexol (Omnipaque 300 Mg/ml) 300 ml 1X ONCE PO Last administered on 08/09/19at 09:20; Start 08/09/19 at 08:30; Stop 08/09/19 at 08:31; Status DC Info (CONTRAST GIVEN -- Rx MONITORING) 1 each PRN DAILY PRN MC SEE COMMENTS; Start 08/09/19 at 08:30; Stop 08/11/19 at 08:29 Iohexol (Omnipaque 300 Mg/ml) 100 ml 1X ONCE PO ; Start 08/09/19 at 10:00; Stop 08/09/19 at 10:01; Status DC Info (CONTRAST GIVEN -- Rx MONITORING) 1 each PRN DAILY PRN MC SEE COMMENTS; Start 08/09/19 at 10:15; Stop 08/11/19 at 10:14 Pantoprazole Sodium (Protonix) 40 mg DAILYAC PO Last administered on 08/10/19at 06:36; Start 08/10/19 at 07:30 Active Scripts Active Reported Claritin-D 24 Hour Tablet (Loratadine/Pseudoephedrine) 1 Each Tab.er.24h 1 Tab PO PRN DAILY PRN 10 Days Proair Hfa (Albuterol Sulfate) 8.5 Gm Hfa.aer.ad 2 Puff IH PRN Q4-6HRS PRN 21 Days Vitals/I & O Vital Sign - Last 24 Hours 08/09/19 08/09/19 08/09/19 08/09/19 15:00 19:00 20:00 23:00 Temp 97.8 98.1 98.5 97.8 98.1 98.5 Pulse 79 76 63 Resp 18 18 18 B/P (MAP) 136/109 (118) 133/87 (102) 105/56 (72) Pulse Ox 96 96 93 O2 Delivery Room Air Room Air Room Air Room Air 08/10/19 08/10/19 08/10/19 08/10/19 03:00 07:00 08:00 11:00 Temp 98.0 97.8 98.3 98.0 97.8 98.3 Pulse 54 60 51 Resp 18 16 18 B/P (MAP) 117/66 (83) 113/73 (86) 122/63 (82) Pulse Ox 94 97 96 O2 Delivery Room Air Room Air Room Air Room Air Intake and Output 08/09/19 08/09/19 08/10/19 15:00 23:00 07:00 Intake Total 200 ml 200 ml Balance 200 ml 200 ml SKY MCGHEE MD Aug 10, 2019 13:14
[2019-08-10] MEDS ORDERED: PANT40TA77 PO (13:17)
--- NOTE | 2019-08-10 13:18 | DISCH ---
DISCHARGE INSTRUCTIONS Condition on Discharge Condition on Discharge: Stable Activity After Discharge Activity Instructions for Disc: Resume previous activity Diet after Discharge Diet after Discharge: Regular Contacting the DRJuan after DC Call your doctor for: If your condition worsens Follow-Up Follow up with: dr. mcghee next week SKY MCGHEE MD Aug 10, 2019 13:18
--- NOTE | 2019-08-10 13:22 | PDOC ---
Provider Note Provider Note discharge summary dictated # [id number] Justicifation of Admission Dx: Justifications for Admission: Justification of Admission Dx: Yes SKY MCGHEE MD Aug 10, 2019 13:22
[2019-08-10 14:11] LABS: GLIA IGA 4 units (0-19); GLIA IGG 3 units (0-19); TRANSGLUTAMINASE IGA AB <2 U/mL (0-3); TRANSGLUTAMINASE IGG AB 4 U/mL (0-5)
--- NOTE | 2019-08-10 15:00 | NUR ---
Pt discharged home with self care. Discharge instructions and prescriptions discussed. Pt verbalized understanding. IV removed. Pt ambulated to ED entrance and drove himself.
--- NOTE | 2019-08-10 20:34 | DS ---
DATE OF DISCHARGE: 08/10/2019 CONSULTANTS: Include Dr. Rogers and Dr. Medina. FINAL DIAGNOSES: 1. Partial small bowel obstruction. 2. Acute gastroenteritis. 3. Abdominal pain, possibly related to the gastroenteritis and also partial small-bowel obstruction. 4. Asthma. 5. History of cholecystectomy. HOSPITAL COURSE: The patient is a 49-year-old white male with history of asthma and allergic rhinitis, admitted to [facility] from my office 08/03/2019 with vomiting, diarrhea and epigastric and lower abdominal pain without any fever or chills. He had a sandwich from [facility] earlier in the week and had 10 loose stools on the day of admission with vomiting. Symptoms began on Thursday, which was on 08/01. He had the abdominal pain as mentioned. He was admitted to the hospital and made n.p.o., started on IV fluids. Acute abdominal series showed air-fluid levels in multiple small bowel loops consistent with a partial small-bowel obstruction. He continued to have diarrhea. Seen in consultation by Dr. Medina, the surgeon, had followup acute abdominal series, which showed some improvement. His diet eventually was advanced to clear liquids, then to full liquids and solid foods. He had a small bowel follow-through that was normal. His IV fluids were discontinued. He was started on IV Protonix, then switched to oral Protonix. Seen in consultation by Dr. Medina for General Surgery and Dr. Rogers for GI. Stool for Clostridium difficile toxin was negative. Stool for culture and sensitivity was also negative. He will be dismissed to home on a regular diet. Told to avoid milk and dairy products and will be on Protonix 40 mg p.o. daily, albuterol inhaler 1-2 puffs every 4 hours p.r.n., make an appointment with Dr. Zamudio in the office next week. Return to work on Thursday, which will be 08/14. SKY ZAMUDIO MD DR: JATINDER/osbaldo JOB#: [id number] / [id number]
== END 2019-08-10 15:06 | disposition home or self-care (01) | DRG 392 ==
LOC: 4 NORTH 13:18 → 1 WEST ICU 14:23 → 6 SOUTH 19:50 → 4 NORTH 08-04 16:51
PROVIDERS: ADMIT Internal Medicine; ATTEND Internal Medicine
DX: K52.9 Noninfective gastroenteritis and colitis, unspecified (principal); K56.600 Partial intestinal obstruction, unspecified as to cause; K56.7 Ileus, unspecified; E78.5 Hyperlipidemia, unspecified; E83.42 Hypomagnesemia; J45.909 Unspecified asthma, uncomplicated; K21.9 Gastro-esophageal reflux disease without esophagitis; K63.5 Polyp of colon; K90.0 Celiac disease; Z20.828 Contact with and (suspected) exposure to other viral communicable diseases; Z80.3 Family history of malignant neoplasm of breast; Z82.49 Family history of ischemic heart disease and other diseases of the circulatory system; Z83.3 Family history of diabetes mellitus; Z83.79 Family history of other diseases of the digestive system; Z90.49 Acquired absence of other specified parts of digestive tract
CPT/HCPCS: 36415; 71045; 74018; 74022; 74176; 74250; 80048; 80053; 81001; 82150; 83516; 83690; 83735; 85025; 85610; 86140; 87493; 87505; 93005; 93971; 94760; C9113; J2270; J2405; J3475; J3480; Q9967; G0378; U0003-CS

== ENCOUNTER → 2021-02-14 | Outpatient (CLI) | payer OTHER ==
[~2021-02-14] MED LIST changes: +LORA-627 PO; +PANT40TA77 PO; +PERFLUTREN PROTEIN-A MICROSPHR 0.22 MG/ML 3 ML VIAL. IV ONE; +REGADENOSON 0.4 MG/5 ML DISP.SYRIN. IV ONE
--- NOTE | 2021-02-14 14:30 | RAD ---
MR#: [id number] Date of Study: 02/14/2021 Ordering Physician: STEPHY BOWEN, Referring Physician: ENEDINA ANN Tech: MARION Watts ARRT (R) (N) APPROVED REPORT Test Type: Pharmacological Stress Nurse/Tech: Marilee Davis RN Test Indications: Chest pain Cardiac History: Family history Medications: See Electronic Medical Record Medical History: See Electronic Medical Record Resting ECG: SR Resting Heart Rate: 67 bpm Resting Blood Pressure: 125/77mmHg Pretest Chest Pain: Atypical angina Nurse/Tech Notes S1,S2 and lungs clear to auscultation. Patient stated he has had constant chest pain/discomfort since his second COVID shot (11/06). Consent: The procedure was explained to the patient in lay terms. Informed consent was witnessed. Luke eout was entered into [employer]. History and Stress Test performed by MARION Watts ARRT (R) (N) Pharm. Details Pharmacologic stress testing was performed using 0.4mg per 5ml of regadenoson given intravenously ove r 7-10 seconds. Stress Symptoms Dizziness,Nausea POST EXERCISE Reason for Termination: Infusion complete Target HR: No Max HR: 109 bpm 76% of Maximum Predicted HR: 142 bpm Max Blood Pressure: 147/83mmHg Blood Pressure response to exercise: Normal blood pressure response during stress. Heart Rate response to exercise: WNL Chest Pain: Yes. constant Arrhythmia: No. ST Change: No. INTERPRETATION Stress EKG Conclusion: No evidence of stress induced EKG changes. Imaging Protocol IMAGE PROTOCOL: Rest Tc-99m/stress Tc-99m 1 day Rest: Stress: Viability: Radiopharm.Tc99m QmmwqvkjwPa08t Sestamibi Dose10.1mCi 31.4mCi Img Date 02/14/2021 02/14/2021 Inj-Img Kuzy81hxh. 60min. Rest Admin Site:IV - Right AntecubitalAdministrator:RT María Lester)(N) Stress Admin Site: IV - Right AntecubitalAdministrator: Betty Alvarado, NMTCB, ARRT (R)(N) STRESS DATA End Diast. Vol.114.0mlLVEDV index BSA51.0ml End Syst. Vol.32.0mlLVESV index BSA14.0ml Myocardial Vmew392.0gEject. Tzzouahh98.0% Stress Scores Regional WT2.00Summed WT10.00 Regional WM0.00Summed WM1.00 The rest and stress images show normal perfusion, normal contraction and thickening. LV Perf. Quant 17 Seg. SSS0.00 17 Seg. SRS0.00 17 Seg. SDS0.00 Stress Defect Extent (% LAD)0.00Rest Defect Extent (% LAD)0.00Rev. Defect Extent (% LAD)0.00 Stress Defect Extent (% LCX) 0.00Rest Defect Extent (% LCX)5.00Rev. Defect Extent (% LCX)0.00 Stress Defect Extent (% RCA)0.00Rest Defect Extent (% RCA)0.00Rev. Defect Extent (% RCA)0.00 Stress Defect Extent (% ZURI)0.00Rest Defect Extent (% ZURI)0.90Rev. Defect Extent (% ZURI)0.00 Other Information Quality:Good Risk Assessment: Low Risk Conclusion 1. No evidence of EKG changes with stress testing. 2. Normal perfusion at stress/rest. 3. Low risk study. 4. EF > 60%. Signed by : Alhaji Odell, Electronically Approved : 02/14/2021 14:30:20
--- NOTE | 2021-02-14 15:58 | CARD ---
MR#: [id number] Date of Study: 02/14/2021 Ordering Physician: STEPHY BOWEN, Referring Physician: STEPHY BOWEN Tech: Sugar Santiago [facility] APPROVED REPORT EXAM: Two-dimensional and M-mode echocardiogram with Doppler and color Doppler. Other Information Quality : Technically LimitedHR: 58bpm Rhythm : NSR INDICATION Chest Pain Echo Enhancing Agent Indication: Endocardial border delineation Agent/Amount Used: Optison 2mL RISK FACTORS Obesity Hyperlipidemia 2D DIMENSIONS RVDd2.9 (2.9-3.5cm)Left Atrium(2D)4.4 (1.6-4.0cm) IVSd1.0 (0.7-1.1cm)Aortic Root(2D)3.0 (2.0-3.7cm) LVDd4.7 (3.9-5.9cm)LVOT Diameter2.3 (1.8-2.4cm) PWd1.0 (0.7-1.1cm)LVDs2.8 (2.5-4.0cm) FS (%) 40.4 %SV71.4 ml LVEF(%)71.1 (>50%) Aortic Valve AoV Peak Saul.106.1cm/sAoV VTI25.0cm AO Peak GR.4.5mmHgLVOT Peak Saul.102.4cm/s AO Mean GR.2mmHgAVA (VMAX)4.04cm2 Mitral Valve MV E Jsmlgjxh51.6cm/sMV DECEL [id number] MV A Xszwzvno07.5cm/sE/A Ratio1.3 Pulmonary Valve PV Peak Ayjzfpfs366.9cm/s Tricuspid Valve TR P. Ongbkefv273nr/sTR Peak Gr.23mmHg LEFT VENTRICLE The left ventricle is normal size. There is normal left ventricular wall thickness. The left ventricu lar systolic function is normal and the ejection fraction is within normal range. EF 55% There is nor mal LV segmental wall motion. Transmitral Doppler flow pattern is Grade I-abnormal relaxation pattern . RIGHT VENTRICLE The right ventricle is normal size. There is normal right ventricular wall thickness. The right ventr icular systolic function is normal. ATRIA The left atrium size is normal. The right atrium size is normal. The interatrial septum is intact wit h no evidence for an atrial septal defect or patent foramen ovale as noted on 2-D or Doppler imaging. AORTIC VALVE The aortic valve is normal in structure and function. Doppler and Color Flow revealed no significant aortic regurgitation. There is no significant aortic valvular stenosis. MITRAL VALVE The mitral valve is normal in structure and function. There is no evidence of mitral valve prolapse. There is no mitral valve stenosis. Doppler and Color Flow revealed no mitral valve regurgitation note d. TRICUSPID VALVE The tricuspid valve is normal in structure and function. Doppler and Color Flow revealed trace tricus pid regurgitation. Estimated PAP 25 mmHg. There is no tricuspid valve stenosis. PULMONIC VALVE Doppler and Color Flow revealed no pulmonic valvular regurgitation. There is no pulmonic valvular aram nosis. GREAT VESSELS The aortic root is normal in size. The ascending aorta is normal in size. The IVC is normal in size a nd collapses >50% with inspiration. PERICARDIAL EFFUSION There is no evidence of significant pericardial effusion. Critical Notification Critical Value: No <Conclusion> The left ventricular systolic function is normal and the ejection fraction is within normal range. EF 55% There is normal LV segmental wall motion. Doppler and Color Flow revealed trace tricuspid regurgitation. Estimated PAP 25 mmHg. Signed by : Alhaji Odell, Electronically Approved : 02/14/2021 15:57:35
== END ==
LOC: NM 08:45
PROVIDERS: ATTEND Internal Medicine Cardiovascular Disease
DX: R07.9 Chest pain, unspecified (principal)
CPT/HCPCS: 78452; 93017; A9500; C8929; J2785; Q9956